=== PATIENT | male | born 1945 | race Caucasian/White ===

== ENCOUNTER 2016-11-08 11:23 | Inpatient (IN) | payer MEDICARE, BC ==
--- NOTE | 2016-11-08 12:29 | EDM.PDOC ---
ED HPI GENERAL MEDICAL PROBLEM - General Chief Complaint: Lower Extremity Injury/Pain Stated Complaint: swelling in lower extremities Time Seen by Provider: 11/08/16 11:51 Source of Information: Reports: Patient, Family History Limitations: Reports: No Limitations - History of Present Illness INITIAL COMMENTS - FREE TEXT/NARRATIVE: Patient here for evaluation of persistent lower extremity swelling in ankle area bilaterally that has been present for several days. No pain, but feels "tight". Still able to ambulate. Patient had rotator cuff repair on right side one week ago. Was on MS orally for several days. Now on PRN Hydrocodone/Tylenol. Only other complaints are that he has felt itchy since the surgery, and periodically feels hot/cold. No hives. No increased pain in right shoulder, no increased redness or drainage. ROS negative for HEENT changes. No cough/SOB/respiratory changes. No other pain complaints. No change in exercise tolerance. Has had some constipation but no other GI complaints. That improved with OTC stool softeners. No changes. No other limb complaints. Usually takes a morning dose of lasix. Called his provider, Chinmay Pierre, and advised to try lasix BID. Patient says he did not notice any change in the level of swelling. Patient does not weigh himself and cannot say if he has had any short term weight gain. Does not note swelling anywhere else. - Related Data Allergies Allergy/AdvReac Type Severity Reaction Status Date / Time No Known Allergies Allergy Verified 02/25/15 10:55 Home Meds: Home Meds Gabapentin [Neurontin] 900 mg PO TID 11/29/14 [History] Simvastatin [Zocor] 1 tab PO BEDTIME 11/29/14 [History] Terazosin [Hytrin] 1 cap PO DAILY 11/29/14 [History] Warfarin [Coumadin] 2.5 mg PO ONETIME@1800 11/29/14 [History] amLODIPine Besylate [Amlodipine Besylate] 0.5 tab PO DAILY 11/29/14 [History] Furosemide [Lasix] 60 mg PO BID@0800,1200 PRN 02/25/15 [History] Acetaminophen 1,000 mg PO Q8HR PRN 03/07/15 [History] Hydrocodone/Acetaminophen [Hydrocodon-Acetaminoph 7.5-325] 1 - 2 each PO PRN [History] Levothyroxine 25 mcg PO ACBREAKFAST 11/08/16 [History] Past Medical History HEENT History: Reports: None Other HEENT History: Glasses Cardiovascular History: Reports: Afib, High Cholesterol, Hypertension Respiratory History: Reports: COPD Other Respiratory History: HCC Gastrointestinal History: Reports: None Genitourinary History: Reports: Prostate Disorder Musculoskeletal History: Reports: Arthritis, Back Pain, Chronic, Fracture, Gout , Other (See Below) Other Musculoskeletal History: Compression fracture of L4 Neurological History: Reports: None Psychiatric History: Reports: None Endocrine/Metabolic History: Reports: None, Obesity/BMI 30+ Hematologic History: Reports: None Immunologic History: Reports: None Oncologic (Cancer) History: Reports: None Dermatologic History: Reports: None - Past Surgical History HEENT Surgical History: Reports: None, Other (See Below) GI Surgical History: Reports: Hernia Repair/Other Musculoskeletal Surgical History: Reports: Other (See Below) Social & Family History - Family History Cardiac: Reports: Heart Failure, Hypertension Endocrine/Metabolic: Reports: Diabetes, type II - Tobacco Use Smoking Status *Q: Former Smoker Years of Tobacco use: 30 Packs/Tins Daily: 1 Used Tobacco, but Quit: Yes Month Tobacco Last Used: November 2000 Second Hand Smoke Exposure: No - Alcohol Use Days Per Week of Alcohol Use: 3 Number of Drinks Per Day: 5 Total Drinks Per Week: 15 - Recreational Drug Use Recreational Drug Use: No Review of Systems - Review of Systems Review Of Systems: See Below Constitutional: Reports: Other (Feels hot/cold at times). Denies: Diaphoresis, Fever, Weakness Ears: Reports: No Symptoms Nose: Reports: No Symptoms Mouth/Throat: Reports: No Symptoms Respiratory: Reports: No Symptoms Cardiovascular: Reports: No Symptoms GI/Abdominal: Reports: Constipation. Denies: Abdominal Pain, Diarrhea, Nausea, Vomiting Genitourinary: Reports: No Symptoms Musculoskeletal: Reports: Other (swelling bilateral lower legs) Skin: Reports: Pruritis. Denies: Rash Neurological: Reports: No Symptoms Psychiatric: Reports: No Symptoms ED EXAM, GENERAL - Physical Exam Exam: See Below Exam Limited By: No Limitations General Appearance: Alert, No Apparent Distress, Obese Eye Exam: Bilateral Eye: EOMI, PERRL Ears: Normal External Exam Nose: Normal Inspection Throat/Mouth: Normal Inspection, Normal Voice, No Airway Compromise Head: Atraumatic, Normocephalic Neck: Normal Inspection, Supple, Non-Tender, Full Range of Motion Respiratory/Chest: No Respiratory Distress, Lungs Clear, Normal Breath Sounds, No Accessory Muscle Use, Chest Non-Tender Cardiovascular: Regular Rate, Rhythm, No Murmur, Other (Pitting edema bilaterally lower leg/ankle area. Equal bilaterally. Unable to palpate pulses in area secondary to the edema. ) GI/Abdominal: Normal Bowel Sounds, Soft, Non-Tender, Other (rounded protuberant abdomen.) (Male) Exam: Deferred Rectal (Males) Exam: Deferred Back Exam: No: CVA Tenderness (L), CVA Tenderness (R), Muscle Spasm, Paraspinal Tenderness, Vertebral Tenderness Extremities: Non-Tender, Pedal Edema. No: Jose Alfredo's Sign, Leg Pain, Increased Warmth, Pallor, Redness Neurological: Alert, Oriented, Normal Cognition, Other (Equal strength bilaterally upper/lower extremities) Psychiatric: Normal Affect, Normal Mood Skin Exam: Warm, Dry, Intact, Ecchymosis (in area of right rotator cuff surgery) , Other (Skin dryer in area of lower extremities. No excoriations, skin intact. ) Course - Vital Signs Last Recorded V/S: Last Vital Signs Temp 36.6 C 11/08/16 11:46 Pulse 62 11/08/16 11:46 Resp 18 11/08/16 11:46 BP 123/70 11/08/16 11:46 Pulse Ox 96 11/08/16 11:46 - Re-Assessments/Exams Free Text/Narrative Re-Assessment/Exam: 11/08/16 12:34 Patient noted to have significant edema and it was felt that he would benefit from IV lasix therapy. Edema likely related to the recent surgery/medications/activity changes. Will perform routine labs as well as UA. INR to be checked as patient is back on his Warfarin. Admitted observation for diuresis. Will also cover with Benadryl to see if itching is improved. The pruritis may be related to his pain medication or the recent other medications used in conjunction with his surgery. Departure - Departure Time of Disposition: 12:40 Disposition: Refer to Observation Clinical Impression: Bilateral lower extremity edema, S/P rotator cuff repair, Itching - Discharge Information - Problem List & Annotations (1) Bilateral lower extremity edema SNOMED Code(s): 633572957 Code(s): R60.0 - LOCALIZED EDEMA Status: Acute Priority: High Current Visit: Yes Onset Date: ~11/04/16 (2) S/P rotator cuff repair SNOMED Code(s): 539196388, 599511601 Code(s): Z98.890 - OTHER SPECIFIED POSTPROCEDURAL STATES Status: Acute Priority: Medium Current Visit: Yes Onset Date: 11/02/16 Annotation/ Comment:: Right rotator cuff repair (3) Itching SNOMED Code(s): 995517292 Code(s): L29.9 - PRURITUS, UNSPECIFIED Status: Acute Priority: Low Current Visit: Yes Onset Date: ~11/04/16 Annotation/Comment:: Has had general sensation of pruritis since surgery. (4) BPH (benign prostatic hyperplasia) SNOMED Code(s): 534254896, 039707749 Code(s): N40.0 - BENIGN PROSTATIC HYPERPLASIA WITHOUT LOWER URINRY TRACT SYMP Status: Chronic Current Visit: No (5) Hypothyroid SNOMED Code(s): 89153228 Code(s): E03.9 - HYPOTHYROIDISM, UNSPECIFIED Status: Chronic Current Visit: No (6) Dyslipidemia SNOMED Code(s): 484711741 Code(s): E78.5 - HYPERLIPIDEMIA, UNSPECIFIED Status: Chronic Current Visit: No (7) Chronic back pain SNOMED Code(s): 588458694 Code(s): M54.9 - DORSALGIA, UNSPECIFIED; G89.29 - OTHER CHRONIC PAIN Status : Chronic Current Visit: No (8) Atrial fibrillation with controlled ventricular response SNOMED Code(s): 26843950, 570787209 Code(s): I48.91 - UNSPECIFIED ATRIAL FIBRILLATION Status: Chronic Current Visit: No - Problem List Review Problem List Initiated/Reviewed/Updated: Yes - Assessment/Plan Admission H&P: Please use this note as an admission H&P Assessment:: Bilateral lower extremity edema s/p recent right rotator cuff repair. Mild pruritis over same timeframe. Plan: Patient OK for/stable for generalized supervision. IV lasix planned. Benadryl. Will try to change current medications for pain to see if itching improves.
[2016-11-08] MEDS ORDERED: Bisacodyl 10 MG Supp RECTAL PRN (12:53)
[2016-11-08] MEDS ORDERED: Magnesium Hydroxide 400 MG/5 ML Susp 30 ML Cup PO PRN (12:53)
[2016-11-08] MEDS ORDERED: Furosemide 40 MG/4 ML VIAL IVPUSH ONE (12:59)
[2016-11-08] MEDS: Sodium Chloride 0.9% 10 ML Syringe FLUSH PRN (13:34)
[2016-11-08] MEDS: Acetaminophen 325 MG Tab PO PRN (13:45)
[2016-11-08 13:55] LABS: CHLORIDE,CL 102 mmol/L (98-107); SODIUM,NA 140 mmol/L (136-145)
[2016-11-08] MEDS ORDERED: traMADol 50 MG Tab PO ONE (15:40)
[2016-11-08] MEDS ORDERED: Ketorolac 30 MG/ML SDV IVPUSH ONE (15:42)
[2016-11-08] MEDS ORDERED: diphenhydrAMINE 50 MG/ML SDV IVPUSH ONE (15:42)
[2016-11-08] MEDS ORDERED: Sodium Chloride 0.9% 1,000 ML IV ONE (15:42)
[2016-11-08] MEDS ORDERED: Warfarin 2.5 MG Tab PO ONE (18:00)
[2016-11-08] MEDS ORDERED: Warfarin 5 MG Tab PO ONE (18:00)
[2016-11-08] MEDS: Simvastatin 10 MG Tab PO SCH (19:36)
--- NOTE | 2016-11-08 20:59 | PCM.SN ---
- Free Text/Narrative Note: Patient noted to be Bradycardic once admitted and after receiving initial medications. Telemetry initiated. Patient without complaint. Resting comfortably. Uncertain at this time if related to medications. Will continue telemetry and monitor for changes.
--- NOTE | 2016-11-08 23:37 | PCM.SN ---
- Free Text/Narrative Note: Persistent bradycardia. Patient does not know what usual heart rate is or if he has had bradycardia in past. Continues to feel fine. No complaints. Is sitting in chair watching television. Vital signs stable. EKG obtained. Bradycardia and Afib noted. Rate 38. Call placed to Cardiology at [place]. Discussed patient with . He reviewed EKG. Recommended continued observation as long as patient remains stable and without complaint. May reflect developing sick sinus syndrome. We are to contact Cardiology if any worsening is noted.
[2016-11-09] MEDS ORDERED: Furosemide 40 MG/4 ML VIAL IVPUSH ONE ×2 (07:00→08:56)
[2016-11-09] MEDS ORDERED: Terazosin 5 MG Cap PO SCH (08:00)
[2016-11-09] MEDS ORDERED: amLODIPine 5 MG Tab PO SCH (08:00)
[2016-11-09] MEDS ORDERED: Lisinopril 10 MG Tab PO SCH (09:00)
[2016-11-09] MEDS: Levothyroxine 25 MCG Tab PO SCH (09:50)
[2016-11-09] MEDS: Acetaminophen 325 MG Tab PO PRN (09:51)
[2016-11-09 09:58] LABS: CHLORIDE,CL 105 mmol/L (98-107); SODIUM,NA 143 mmol/L (136-145)
[2016-11-09] MEDS ORDERED: Gabapentin 300 MG Cap PO SCH ×2 (10:15→15:00)
[2016-11-09] MEDS: Sodium Chloride 0.9% 10 ML Syringe FLUSH PRN (10:25)
[2016-11-09] MEDS: Potassium Chloride 20 MEQ Tab.ER PO SCH ×2 (11:54→18:13)
--- NOTE | 2016-11-09 14:58 | PCM.PN ---
- General Info Date of Service: 11/09/16 Admission Dx/Problem (Free Text): 1. Bradycardia 2. CHF Subjective Update: As below Functional Status: Reports: Pain Controlled (Postoperative right shoulder pain after recent arthroscopic rotator cuff repair), Tolerating Diet, Ambulating, Urinating, New Symptoms (Moderate bradycardia as below). Denies: Incentive Spirometry Pain Score: 5 - Review of Systems General: Reports: Other (Development of moderate bradycardia in the 30s during the night with improvement to the 50s earlier this morning). Denies: Fever, Weakness, Fatigue, Malaise, Chills, Night Sweats, Appetite (Appetite good) HEENT: Reports: Glasses. Denies: Dysphasia, Ear Pain, Eye Pain, Headaches, Sinus Congestion, Sore Throat, Rhinitis, Visual Changes Pulmonary: Reports: No Symptoms. Denies: Shortness of Breath, Pleuritic Chest Pain, Cough, Sputum, Hemoptysis, Wheezing Cardiovascular: Reports: Edema (Moderate dependent edema), Lightheadedness ( Borderline). Denies: Chest Pain, Palpitations, Dyspnea on Exertion, Orthopnea, PND Gastrointestinal: Reports: No Symptoms, Other (Excellent bowel movement earlier this morning). Denies: Abdominal Pain, Constipation, Decreased Appetite, Diarrhea, Difficulty Swallowing, Flatus, Hematochezia, Melena, Nausea, Vomiting Genitourinary: Reports: No Symptoms. Denies: Dysuria, Frequency, Burning, Pain , Urgency, Incontinence, Hematuria, Retention, Flank Pain Musculoskeletal: Reports: Shoulder Pain (Postoperative pain and right shoulder as above), Joint Pain (As above). Denies: Arm Pain, Hand Pain, Back Pain, Leg Pain, Joint Swelling Skin: Reports: Bruising (Postoperative left proximal arm and chest wall). Denies: Pallor, Diaphoresis Neurological: Reports: Dizziness. Denies: Confusion, Headache, Numbness, Paresthesia, Tingling, Trouble Speaking, Difficulty Walking, Weakness, Change in Speech Psychiatric: Reports: No Symptoms. Denies: Confusion, Depression, Anxiety, Agitation, Suicidal Ideation - Patient Data Vitals - Most Recent: Last Vital Signs Temp 36.7 C 11/09/16 08:00 Pulse 43 L 11/09/16 08:00 Resp 16 11/09/16 00:00 BP 146/87 H 11/09/16 08:00 Pulse Ox 97 11/09/16 08:00 Vital Signs - 24 hr 08/23/17 08/24/17 08/24/17 16:00 00:00 08:00 Temperature [ 36.6 C 36.6 C 36.7 C Oral] Pulse, 40 L 50 L 43 L Peripheral [ Pulse Oximetry] Respiratory 20 16 Rate Blood Pressure 132/70 143/79 H 146/87 H [Left Arm] O2 Sat by Pulse 97 96 97 Oximetry Weight - Most Recent: 140.069 kg I&O - Last 24 Hours: Intake & Output 11/08/16 11/09/16 11/09/16 22:59 06:59 14:59 Intake Total 670 785 Output Total 208 215 4050 Balance -130 -150 -665 Imaging Impressions - Last 24 Hours: 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 No ectopy or extrasystoles Lab Results Last 24 Hours: Laboratory Results - last 24 hr 11/08/16 11/08/16 11/09/16 Range/Units 13:20 14:21 09:25 WBC 10.7 H (4.0-10.2) K/uL RBC 4.83 (4.33-5.41) M/uL Hgb 15.3 (13.1-16.8) g/dL Hct 45.3 (39.0-49.0) % MCV 93.8 (84.0-98.0) fL MCH 31.7 (28.2-33.3) pg MCHC 33.8 (31.7-36.0) g/dL RDW 15.0 H (11.2-14.1) % Plt Count 252 (150-350) K/uL Neut % (Auto) 67.2 (45.0-80.0) % Lymph % (Auto) 15.9 (10.0-50.0) % [place] % (Auto) 12.0 (2.0-14.0) % Eos % (Auto) 4.5 (0.0-5.0) % Baso % (Auto) 0.4 (0.0-2.0) % Neut # (Auto) 7.16 H (1.40-7.00) K/uL Lymph # (Auto) 1.70 (0.50-3.50) K/uL [place] # (Auto) 1.28 H (0.00-1.00) K/uL Eos # (Auto) 0.48 (0.00-0.50) K/uL Baso # (Auto) 0.04 (0.00-0.20) K/uL PT (9.8-11.7) SEC INR APTT (23.5-30.0) SEC D-Dimer, Quantitative (0-400) ng/mL Sodium (136-145) mmol/L Potassium (3.5-5.1) mmol/L Chloride (98-107) mmol/L Carbon Dioxide (21.0-32.0) mmol/L BUN (7-18) mg/dL Creatinine (0.51-1.17) mg/dL Est Cr Clr Drug Dosing mL/min Estimated GFR (MDRD) mL/min Glucose (74-106) mg/dL Hemoglobin A1c (4.3-5.7) % Calcium (8.5-10.1) mg/dL Total Bilirubin (0.2-1.0) mg/dL AST (15-37) U/L ALT (12-78) U/L Alkaline Phosphatase (46-116) IU/L Creatine Kinase (26-308) U/L Creatine Kinase Index (0.0-2.5) % CK-MB (CK-2) (0.00-3.60) ng/mL Troponin I (0.000-0.056) ng/mL Bxl-W-Guchqmuhdwy Pept (0-125) pg/mL Total Protein (6.4-8.2) g/dL Albumin (3.4-5.0) g/dL TSH, Ultra Sensitive 1.855 (0.358-3.740) mIU/mL Specimen Type Urinblad Urine Color Dark yellow Urine Appearance Clear Urine pH 6.5 (5.0-9.0) Ur Specific [place] 1.015 (1.005-1.030) Urine Protein Negative (NEGATIVE) mg/dL Urine Glucose (UA) Negative (NEGATIVE) mg/dL Urine Ketones Negative (NEGATIVE) mg/dL Urine Occult Blood Negative (NEGATIVE) Urine Nitrite Negative (NEGATIVE) Urine Bilirubin Negative (NEGATIVE) Urine Urobilinogen 1.0 (0.2-1.0) E.U./dL Ur Leukocyte Esterase Negative (NEGATIVE) Urine RBC Not seen /HPF Urine WBC 0-5 /HPF Ur Epithelial Cells Not seen /LPF Urine Bacteria Not seen (NONE TO FEW) /HPF 11/09/16 11/09/16 11/09/16 Range/Units 09:25 09:25 09:25 WBC (4.0-10.2) K/uL RBC (4.33-5.41) M/uL Hgb (13.1-16.8) g/dL Hct (39.0-49.0) % MCV (84.0-98.0) fL MCH (28.2-33.3) pg MCHC (31.7-36.0) g/dL RDW (11.2-14.1) % Plt Count (150-350) K/uL Neut % (Auto) (45.0-80.0) % Lymph % (Auto) (10.0-50.0) % [place] % (Auto) (2.0-14.0) % Eos % (Auto) (0.0-5.0) % Baso % (Auto) (0.0-2.0) % Neut # (Auto) (1.40-7.00) K/uL Lymph # (Auto) (0.50-3.50) K/uL [place] # (Auto) (0.00-1.00) K/uL Eos # (Auto) (0.00-0.50) K/uL Baso # (Auto) (0.00-0.20) K/uL PT (9.8-11.7) SEC INR APTT (23.5-30.0) SEC D-Dimer, Quantitative 709 H (0-400) ng/mL Sodium 143 (136-145) mmol/L Potassium 3.5 (3.5-5.1) mmol/L Chloride 105 (98-107) mmol/L Carbon Dioxide 29.1 (21.0-32.0) mmol/L BUN 19 H (7-18) mg/dL Creatinine 0.87 (0.51-1.17) mg/dL Est Cr Clr Drug Dosing 90.13 mL/min Estimated GFR (MDRD) > 60 mL/min Glucose 131 H (74-106) mg/dL Hemoglobin A1c 6.2 H (4.3-5.7) % Calcium 9.1 (8.5-10.1) mg/dL Total Bilirubin 1.6 H (0.2-1.0) mg/dL AST 29 (15-37) U/L ALT 46 (12-78) U/L Alkaline Phosphatase 99 (46-116) IU/L Creatine Kinase 28 (26-308) U/L Creatine Kinase Index 2.9 H (0.0-2.5) % CK-MB (CK-2) 0.80 (0.00-3.60) ng/mL Troponin I 0.000 (0.000-0.056) ng/mL Aus-B-Hmvjbptueqv Pept 260 H (0-125) pg/mL Total Protein 7.3 (6.4-8.2) g/dL Albumin 3.5 (3.4-5.0) g/dL TSH, Ultra Sensitive (0.358-3.740) mIU/mL Specimen Type Urine Color Urine Appearance Urine pH (5.0-9.0) Ur Specific [place] (1.005-1.030) Urine Protein (NEGATIVE) mg/dL Urine Glucose (UA) (NEGATIVE) mg/dL Urine Ketones (NEGATIVE) mg/dL Urine Occult Blood (NEGATIVE) Urine Nitrite (NEGATIVE) Urine Bilirubin (NEGATIVE) Urine Urobilinogen (0.2-1.0) E.U./dL Ur Leukocyte Esterase (NEGATIVE) Urine RBC /HPF Urine WBC /HPF Ur Epithelial Cells /LPF Urine Bacteria (NONE TO FEW) /HPF 11/09/16 Range/Units 09:25 WBC (4.0-10.2) K/uL RBC (4.33-5.41) M/uL Hgb (13.1-16.8) g/dL Hct (39.0-49.0) % MCV (84.0-98.0) fL MCH (28.2-33.3) pg MCHC (31.7-36.0) g/dL RDW (11.2-14.1) % Plt Count (150-350) K/uL Neut % (Auto) (45.0-80.0) % Lymph % (Auto) (10.0-50.0) % [place] % (Auto) (2.0-14.0) % Eos % (Auto) (0.0-5.0) % Baso % (Auto) (0.0-2.0) % Neut # (Auto) (1.40-7.00) K/uL Lymph # (Auto) (0.50-3.50) K/uL [place] # (Auto) (0.00-1.00) K/uL Eos # (Auto) (0.00-0.50) K/uL Baso # (Auto) (0.00-0.20) K/uL PT 24.8 H (9.8-11.7) SEC INR 2.2 APTT 35.4 H (23.5-30.0) SEC D-Dimer, Quantitative (0-400) ng/mL Sodium (136-145) mmol/L Potassium (3.5-5.1) mmol/L Chloride (98-107) mmol/L Carbon Dioxide (21.0-32.0) mmol/L BUN (7-18) mg/dL Creatinine (0.51-1.17) mg/dL Est Cr Clr Drug Dosing mL/min Estimated GFR (MDRD) mL/min Glucose (74-106) mg/dL Hemoglobin A1c (4.3-5.7) % Calcium (8.5-10.1) mg/dL Total Bilirubin (0.2-1.0) mg/dL AST (15-37) U/L ALT (12-78) U/L Alkaline Phosphatase (46-116) IU/L Creatine Kinase (26-308) U/L Creatine Kinase Index (0.0-2.5) % CK-MB (CK-2) (0.00-3.60) ng/mL Troponin I (0.000-0.056) ng/mL Ngg-E-Drqkzyblluw Pept (0-125) pg/mL Total Protein (6.4-8.2) g/dL Albumin (3.4-5.0) g/dL TSH, Ultra Sensitive (0.358-3.740) mIU/mL Specimen Type Urine Color Urine Appearance Urine pH (5.0-9.0) Ur Specific [place] (1.005-1.030) Urine Protein (NEGATIVE) mg/dL Urine Glucose (UA) (NEGATIVE) mg/dL Urine Ketones (NEGATIVE) mg/dL Urine Occult Blood (NEGATIVE) Urine Nitrite (NEGATIVE) Urine Bilirubin (NEGATIVE) Urine Urobilinogen (0.2-1.0) E.U./dL Ur Leukocyte Esterase (NEGATIVE) Urine RBC /HPF Urine WBC /HPF Ur Epithelial Cells /LPF Urine Bacteria (NONE TO FEW) /HPF Justin Results Last 24 Hours: None Med Orders - Current: Current Medications Acetaminophen (Tylenol) 650 mg PO Q4H PRN PRN Reason: analgesia/fever Last Admin: 11/09/16 09:51 Dose: 650 mg Bisacodyl (Dulcolax) 10 mg RECTAL DAILY PRN PRN Reason: Constipation Furosemide (Lasix) 40 mg IVPUSH Q8H [facility] Gabapentin (Neurontin) 900 mg PO TID@0800,1500,2100 [facility] Levothyroxine Sodium (Levothyroxine) 25 mcg PO ACBREAKFAST [facility] Last Admin: 11/09/16 09:50 Dose: 25 mcg Lisinopril (Prinivil) 10 mg PO DAILY [facility] Last Admin: 11/09/16 09:51 Dose: 10 mg Magnesium Hydroxide (Milk Of Magnesia) 30 ml PO BID PRN PRN Reason: Constipation Potassium Chloride (Klor-Con M20) 20 meq PO TID [facility] Last Admin: 11/09/16 11:54 Dose: 20 meq Simvastatin (Zocor) 10 mg PO BEDTIME [facility] Last Admin: 11/08/16 19:36 Dose: 10 mg Sodium Chloride (Saline Flush) 10 ml FLUSH ASDIRECTED PRN PRN Reason: Keep Vein Open Last Admin: 11/09/16 10:25 Dose: 10 ml Terazosin HCl (Hytrin) 10 mg PO DAILY [facility] Last Admin: 11/09/16 09:50 Dose: 10 mg Discontinued Medications Amlodipine Besylate (Norvasc) 5 mg PO DAILY [facility] Last Admin: 11/09/16 11:10 Dose: Not Given Diphenhydramine HCl (Benadryl) 50 mg IVPUSH ONETIME ONE Stop: 11/08/16 15:43 Last Admin: 11/08/16 16:02 Dose: 50 mg Furosemide (Lasix) 40 mg IVPUSH NOW ONE Stop: 11/08/16 13:00 Last Admin: 11/08/16 13:34 Dose: 40 mg Furosemide (Lasix) 40 mg IVPUSH NOW ONE Stop: 11/09/16 07:01 Last Admin: 11/09/16 09:53 Dose: Not Given Furosemide (Lasix) 20 mg IVPUSH ONETIME ONE Stop: 11/09/16 16:01 Furosemide (Lasix) 60 mg IVPUSH NOW ONE Stop: 11/09/16 08:57 Last Admin: 11/09/16 09:52 Dose: 60 mg Gabapentin (Neurontin) 900 mg PO TID [facility] Last Admin: 11/09/16 10:09 Dose: 900 mg Sodium Chloride (Normal Saline) 1,000 mls @ 75 mls/hr IV ASDIRECTED ONE Stop: 11/09/16 05:01 Last Admin: 11/08/16 16:05 Dose: 75 mls/hr Ketorolac Tromethamine (Toradol) 30 mg IVPUSH ONETIME ONE Stop: 11/08/16 15:43 Last Admin: 11/08/16 16:04 Dose: 30 mg Tramadol HCl (Ultram) 50 mg PO ONETIME ONE Stop: 11/08/16 15:41 Last Admin: 11/08/16 16:01 Dose: 50 mg Warfarin Sodium (Coumadin) 2.5 mg PO ONETIME@1800 ONE Stop: 11/08/16 18:01 Warfarin Sodium (Coumadin) 5 mg PO ONETIME ONE Stop: 11/08/16 18:01 Last Admin: 11/08/16 17:33 Dose: 5 mg - Exam Quality Assessment: DVT Prophylaxis (On Coumadin). No: Supplemental Oxygen, Central Line/PICC, Urine Catheter, Skin Breakdown, Restraints General: Alert, Oriented, Cooperative, No Acute Distress HEENT: Pupils Equal, Pupils Reactive, EOMI, Mucous Membr. Moist/[place] Neck: Supple, Trachea Midline, No JVD, No Thyromegaly. No: Lymphadenopathy Lungs: Normal Respiratory Effort, Rales (Mild bilateral basilar rales). No: Rhonchi, Rub, Stridor, Wheezing Cardiovascular: No Murmurs, Irregular Rhythm, Bradycardia (Moderate to severe), Other (Atrial fibrillation with quiet heart sounds). No: Gallops, Rubs GI/Abdominal Exam: Normal Bowel Sounds, Soft, Non-Tender, No Organomegaly, No Distention, No Abnormal Bruit, No Mass, Pelvis Stable, Other (Obese). No: Guarding (Male) Exam: Deferred Back Exam: Normal Inspection, Full Range of Motion. No: CVA Tenderness (L), CVA Tenderness (R), Muscle Spasm Extremities: Normal Capillary Refill, Pedal Edema (+1 to +2 bilateral pedal/ pretibial edema with moderate bilateral venous stasis dermatitis of the lower extremities), Arm Pain (Stable postoperative right shoulder and arm pain as above with sutures in place from laparoscopic surgery and the deltoid region, no drainage or sign of infection, moderate ecchymosis over the proximal right arm, shoulder, and axillary/chest region, arm sling/brace in forearm region). No: Jose Alfredo's Sign Peripheral Pulses: 1+: Dorsalis Pedis (L) (Note dependent edema), Dorsalis Pedis (R), 2+: Radial (L), Radial (R) Skin: Warm, Dry, Ecchymosis (As above) Wound/Incisions: Healing Well Neurological: No New Focal Deficit, Other (Borderline orthostasis) Psy/Mental Status: Alert, Normal Affect, Normal Mood. No: Depressed, Agitated, Hallucinations, Withdrawal Symptoms EKG INTERPRETATION EKG Date: 11/09/16 Time: 07:25 Rhythm: A-Fib (With moderate to severe bradycardia and heart rate of 46 improved from 38 yesterday) [place]: Normal (Neutral) P-Wave: Variable QRS: Wide (QRS interval of 0.10 seconds representing repolarization changes with possible T-wave inversion in lead V1) ST-T: Normal QT: Normal VT/PQ Interval: Not applicable Comparison: Change From Previous EKG (Improves bradycardia as above since ) EKG Interpretation Comments: 1. Moderate to severe bradycardia 2. Atrial fibrillation 3. Repolarization changes - Problem List & Annotations (1) CHF (congestive heart failure) SNOMED Code(s): 57504548 Code(s): I50.9 - HEART FAILURE, UNSPECIFIED Status: Acute Current Visit: Yes Onset Date: ~11/08/16 Qualifiers: Congestive heart failure type: unspecified congestive heart failure type Congestive heart failure chronicity: acute Qualified Code(s): I50.9 - Heart failure, unspecified Annotation/Comment:: BNP significantly elevated with progressive postoperative dependent edema. Additional aggressive IV Lasix therapy initiated today with potassium supplementation. Lisinopril increased from daily to twice a day regimen. Consider further cardiac workup, including echocardiogram, etc. on an outpatient basis. He denies any chest pain or anginal type symptoms. Repeat EKG , blood work, and chest x-ray in the a.m. Moderate to severe bradycardia is a cofactor and patient's current CHF (2) Bradycardia SNOMED Code(s): 94325868 Code(s): R00.1 - BRADYCARDIA, UNSPECIFIED Status: Acute Priority: High Current Visit: Yes Onset Date: 11/09/16 Annotation/Comment:: Moderate to severe bradycardia with cardiology consultation by Dr. Cai yesterday as per simple provider note. Patient's Norvasc and Hytrin were discontinued today secondary to the possible bradycardic effects. Continue to observe his blood pressure closely, which is stable at this time. Possible hospital transfer to [facility] for pacemaker placement with no direct evidence of third-degree AV block at this time, although sick sinus syndrome remains a possibility. Continue to observe his blood pressure closely with IV Lasix and increase lisinopril therapy as above (3) Atrial fibrillation SNOMED Code(s): 11700723 Code(s): I48.91 - UNSPECIFIED ATRIAL FIBRILLATION Status: Chronic Priority: High Current Visit: Yes Qualifiers: Atrial fibrillation type: chronic Qualified Code(s): I48.2 - Chronic atrial fibrillation Annotation/Comment:: Chronic atrial fibrillation with significant bradycardia as above. INR is therapeutic today (4) Elevated d-dimer SNOMED Code(s): 007668097 Code(s): R79.1 - ABNORMAL COAGULATION PROFILE Status: Acute Priority: Medium Current Visit: No Annotation/Comment:: Venous Doppler studies conducted today with preliminary verbal report from park maintenance technicianEmerita, earlier this morning. No clinical evidence of DVT or PE with therapeutic INR at this time. Daily Coumadin orders for now secondary to significant postoperative ecchymosis (5) Osteoarthritis SNOMED Code(s): 929558407 Code(s): M19.90 - UNSPECIFIED OSTEOARTHRITIS, UNSPECIFIED SITE Status: Chronic Priority: Medium Current Visit: Yes Qualifiers: Osteoarthritis location: multiple joints Osteoarthritis type: primary Qualified Code(s): M15.0 - Primary generalized (osteo)arthritis Annotation/Comment:: Note status post recent arthroscopic right rotator cuff repair with normal postoperative pain, which is currently under good control by his history. His arthritis is otherwise stable by history (6) Hyperlipidemia SNOMED Code(s): 70333975 Code(s): E78.5 - HYPERLIPIDEMIA, UNSPECIFIED Status: Chronic Priority: Medium Current Visit: Yes Qualifiers: Hyperlipidemia type: unspecified Qualified Code(s): E78.5 - Hyperlipidemia , unspecified Annotation/Comment:: Currently under therapy (7) Peripheral neuropathy SNOMED Code(s): 056294107 Code(s): G62.9 - POLYNEUROPATHY, UNSPECIFIED Status: Chronic Priority: Medium Current Visit: Yes Qualifiers: Peripheral neuropathy type: polyneuropathy, other Qualified Code(s): G62.89 - Other specified polyneuropathies Annotation/Comment:: Refractory peripheral neuropathy with patient requesting reinitiation of his current high-dose Neurontin therapy today. No problems with this medication concerning his bradycardia, etc. (8) Hypothyroidism SNOMED Code(s): 64459063 Code(s): E03.9 - HYPOTHYROIDISM, UNSPECIFIED Status: Chronic Priority: Medium Current Visit: Yes Qualifiers: Hypothyroidism type: acquired Qualified Code(s): E03.9 - Hypothyroidism, unspecified Annotation/Comment:: Currently under therapy with normal TSH on admission (9) BPH (benign prostatic hyperplasia) SNOMED Code(s): 153544295, 571263880 Code(s): N40.0 - BENIGN PROSTATIC HYPERPLASIA WITHOUT LOWER URINRY TRACT SYMP Status: Chronic Priority: Medium Current Visit: No Qualifiers: Lower urinary tract symptom presence: symptoms absent Qualified Code(s): N40.0 - Benign prostatic hyperplasia without lower urinary tract symptoms Annotation/Comment:: Hytrin discontinued with caution as above. Continue to observe closely - Problem List Review Problem List Initiated/Reviewed/Updated: Yes - My Orders Last 24 Hours: My Active Orders 11/09/16 08:54 Venous Doppler Lwr Ext Bi [US] Urgent 11/09/16 08:58 CHF Questionnaire [COMM] Routine 11/09/16 09:00 Vaccines to be Administered [RC] PER UNIT ROUTINE Lisinopril [Prinivil] 10 mg PO DAILY [facility] Immunization Reflex [OM.PC] Click To Edit 11/09/16 12:00 Potassium Chloride [Klor-Con M20] 20 meq PO TID 11/09/16 15:00 Gabapentin [Neurontin] 900 mg PO TID@0800,1500,2100 11/09/16 17:00 Furosemide [Lasix] 40 mg IVPUSH Q8H 11/09/16 Breakfast Fluid Restriction [DIET] - Assessment Assessment:: As above - Plan Plan:: As above. Extensive precautions were given to the patient and his , who are in agreement with the treatment plan. Patient to be transferred from observation to inpatient/acute care for medication adjustment and further observation of his bradycardia with anticipated an additional 2-3 days of hospitalization with possible early transfer to [facility] depending on his clinical course
[2016-11-09] MEDS ORDERED: Furosemide 20 MG/2 ML VIAL IVPUSH ONE (16:00)
[2016-11-09] MEDS ORDERED: Warfarin 2.5 MG Tab PO ONE (18:00)
[2016-11-09] MEDS: Furosemide 40 MG/4 ML VIAL IVPUSH SCH (18:12)
[2016-11-09] MEDS: Lisinopril 10 MG Tab PO SCH (18:12)
[2016-11-09] MEDS: Gabapentin 400 MG Cap PO SCH (18:14)
[2016-11-09] MEDS: Simvastatin 10 MG Tab PO SCH (19:28)
[2016-11-10] MEDS: Acetaminophen 325 MG Tab PO PRN (00:03)
[2016-11-10] MEDS: Furosemide 40 MG/4 ML VIAL IVPUSH SCH ×2 (00:04→09:37)
[2016-11-10 07:39] LABS: CHLORIDE,CL 103 mmol/L (98-107); SODIUM,NA 141 mmol/L (136-145)
[2016-11-10] MEDS: Gabapentin 400 MG Cap PO SCH (07:41)
[2016-11-10] MEDS: Potassium Chloride 20 MEQ Tab.ER PO SCH (07:41)
[2016-11-10] MEDS: Levothyroxine 25 MCG Tab PO SCH (07:41)
[2016-11-10 08:40] VITALS: BP 128/56
--- NOTE | 2016-11-10 09:07 | PCM.DCSUM1 ---
Discharge Summary - Hospital Course HPI Initial Comments: See admission H&P/emergency room now Brief History: See admission H&P/emergency room note - Discharge Data Discharge Date: 11/10/16 Discharge Disposition: DC/Tfer to Acute Hospital 02 Condition: Good - Discharge Diagnosis/Problem(s) (1) Bradycardia SNOMED Code(s): 30098022 ICD Code: R00.1 - BRADYCARDIA, UNSPECIFIED Status: Acute Priority: High Current Visit: Yes Onset Date: 11/09/16 Problem Details: Moderate to severe bradycardia, which persists despite holding all medications that affect his heart rate, including Norvasc and Hytrin yesterday. Patient is filling additional multiple PVCs versus PACs with aberrant conduction, including short 3 beat run earlier this morning at time of EKG. Note previous cardiology consultation with Dr. Gordillo at [facility] in [place] by Dr. Cai on as per simple provider note with observation recommended. Telephone consultation at 08:35 AM this morning with Dr. Persaud, hospitalist at [facility] in [place], who does accept the patient for direct admission and further cardiology consultation and probable pacemaker placement. No further treatment recommendations given. He is aware of patient's current Coumadin therapy and therapeutic INR 2.5 today. Last Coumadin dose yesterday at 18:00 hours with Coumadin reversal likely on arrival by means of vitamin K, etc.. Note that the patient's daughter also had a pacemaker placed at age 36. Patient's family, including his daughter and , were updated this morning prior to transfer. Ambulance transfer with paint stock clerk accompaniment Patient's Norvasc and Hytrin were discontinued today secondary to the possible bradycardic effects. Continue to observe his blood pressure closely, which is stable at this time. Possible hospital transfer to [place] for pacemaker placement with no direct evidence of third-degree AV block at this time, although sick sinus syndrome remains a possibility. Continue to observe his blood pressure closely with IV Lasix and increase lisinopril therapy as above (2) CHF (congestive heart failure) SNOMED Code(s): 49406828 ICD Code: I50.9 - HEART FAILURE, UNSPECIFIED Status: Acute Current Visit : Yes Onset Date: ~11/08/16 Problem Details: BNP somewhat improved this morning with negative serial cardiac enzymes with exception of artifactually elevated CK index. Note persistent dependent edema with current aggressive IV Lasix and lisinopril therapy. Patient's bradycardia is contributing factor to his CHF with no chest pain or anginal type symptoms. Further cardiac consultation, etc. as above including possible additional echocardiogram, heart catheterization, etc. Qualifiers: Congestive heart failure type: unspecified congestive heart failure type Congestive heart failure chronicity: acute Qualified Code(s): I50.9 - Heart failure, unspecified (3) Atrial fibrillation SNOMED Code(s): 81270825 ICD Code: I48.91 - UNSPECIFIED ATRIAL FIBRILLATION Status: Chronic Priority: High Current Visit: Yes Problem Details: Chronic atrial fibrillation with significant bradycardia as above. INR is therapeutic today. Qualifiers: Atrial fibrillation type: chronic Qualified Code(s): I48.2 - Chronic atrial fibrillation (4) Elevated d-dimer SNOMED Code(s): 449357362 ICD Code: R79.1 - ABNORMAL COAGULATION PROFILE Status: Acute Priority: Medium Current Visit: No Problem Details: Venous Doppler studies conducted yesterday with preliminary verbal report from [employer]. No clinical evidence of DVT or PE with therapeutic INR at this time. Note significant postoperative ecchymosis as above, although this has improved since yesterday. (5) Osteoarthritis SNOMED Code(s): 153058818 ICD Code: M19.90 - UNSPECIFIED OSTEOARTHRITIS, UNSPECIFIED SITE Status: Chronic Priority: Medium Current Visit: Yes Problem Details: Note status post recent arthroscopic right rotator cuff repair with normal postoperative pain, which is currently under good control by his history. His arthritis is otherwise stable by history Qualifiers: Osteoarthritis location: multiple joints Osteoarthritis type: primary Qualified Code(s): M15.0 - Primary generalized (osteo)arthritis (6) Hyperlipidemia SNOMED Code(s): 99489463 ICD Code: E78.5 - HYPERLIPIDEMIA, UNSPECIFIED Status: Chronic Priority: Medium Current Visit: Yes Problem Details: Currently under therapy Qualifiers: Hyperlipidemia type: unspecified Qualified Code(s): E78.5 - Hyperlipidemia , unspecified (7) Peripheral neuropathy SNOMED Code(s): 902670170 ICD Code: G62.9 - POLYNEUROPATHY, UNSPECIFIED Status: Chronic Priority: Medium Current Visit: Yes Problem Details: Refractory peripheral neuropathy with patient requesting reinitiation of his current high-dose Neurontin therapy today. No problems with this medication concerning his bradycardia, etc., however some sedation yesterday at the high-dose regimen with reduction of his Neurontin to 400 mg by mouth 3 times a day yesterday afternoon Qualifiers: Peripheral neuropathy type: polyneuropathy, other Qualified Code(s): G62.89 - Other specified polyneuropathies (8) Hypothyroidism SNOMED Code(s): 88397759 ICD Code: E03.9 - HYPOTHYROIDISM, UNSPECIFIED Status: Chronic Priority: Medium Current Visit: Yes Problem Details: Currently under therapy with normal TSH on admission Qualifiers: Hypothyroidism type: acquired Qualified Code(s): E03.9 - Hypothyroidism, unspecified (9) BPH (benign prostatic hyperplasia) SNOMED Code(s): 666119999, 625903973 ICD Code: N40.0 - BENIGN PROSTATIC HYPERPLASIA WITHOUT LOWER URINRY TRACT SYMP Status: Chronic Priority: Medium Current Visit: No Problem Details : Hytrin discontinued with caution as above. 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 Cai, [facility] physician, for severe bradycardia with cardiology consultation on admission. Observation was recommended. I did assume the patient's care yesterday morning with Norvasc and Hytrin therapy discontinued yesterday with no dose received yesterday. Despite holding these medications the patient's bradycardia did progress, including a heart rate of only 25 with a long pause this while the patient was sleeping. This morning the patient is exhibiting assistant surveyor bradycardia with average heart rate in the 40s and frequent PVCs versus PACs with aberrant conduction, however the patient denies any chest pain or anginal type symptoms. Occasional episodes of mild low-grade fever, however no true significant cough, wheezing, or other bronchitic type symptoms. Secondary to refractory bradycardia as above patient was transferred to [facility] in [place] via ambulance with paint stock clerk accompaniment. In addition, note aggressive treatment of his CHF with high-dose IV Lasix and lisinopril as above. No recent history of abdominal pain, heartburn, nausea, diarrhea, melena , gross hematochezia, or any food intolerance, including fatty foods, etc. with normal bowel movement at midnight by his history. Patient did tolerate his fluid restricted heart healthy diet well and was made nothing by mouth after breakfast secondary to possible upcoming pacemaker placement. - Patient Instructions Diet: NPO Activity: Bedrest, May Use Bathroom Driving: Do Not Drive Showering/Bathing: May Shower (With assist) Wound/Incision Care: Keep Operative Site/Wound Site Clean and Dry Notify Provider of: Fever, Increased Pain, Nausea and/or Vomiting Other/Special Instructions: Ambulance transfer with paint stock clerk accompaniment - Discharge Plan Home Medications: Home Meds Gabapentin [Neurontin] 900 mg PO TID 11/29/14 [History] Simvastatin [Zocor] 1 tab PO BEDTIME 11/29/14 [History] Terazosin [Hytrin] 1 cap PO DAILY 11/29/14 [History] Warfarin [Coumadin] 2.5 mg PO QAM 11/29/14 [History] amLODIPine Besylate [Amlodipine Besylate] 0.5 tab PO DAILY 11/29/14 [History] Furosemide [Lasix] 60 mg PO BID@0800,1200 PRN 02/25/15 [History] Acetaminophen 1,000 mg PO Q8HR PRN 03/07/15 [History] Hydrocodone/Acetaminophen [Hydrocodon-Acetaminoph 7.5-325] 1 each PO Q4HR PRN [History] Levothyroxine 25 mcg PO ACBREAKFAST 11/08/16 [History] Forms: ED Department Discharge, Interfacility Transfer EMTALA Referrals: Chinmay Pierre PA [Primary Care Provider] - - Discharge Summary/Plan Comment DC Time >30 min.: Yes (Coordination of care) Discharge Summary/Plan Comment: As above. Extensive precautions were given to the patient, his , and his daughter who are in agreement with the treatment plan. - General Info Date of Service: 11/10/16 Admission Dx/Problem (Free Text: 1. Bradycardia 2. CHF Subjective Update: As below Functional Status: Reports: Pain Controlled, Tolerating Diet, Ambulating, Urinating. Denies: New Symptoms, Incentive Spirometry Numeric/FACES Score: 5 - Review of Systems General: Reports: Fever (Temperature of 37.2 at midnight with patient afebrile this morning). Denies: Weakness, Fatigue, Malaise, Chills, Night Sweats, Appetite (Appetite good) HEENT: Reports: Glasses. Denies: Ear Pain, Eye Pain, Headaches, Post Nasal Drip , Sinus Congestion, Sore Throat, Rhinitis, Visual Changes Pulmonary: Reports: No Symptoms. Denies: Shortness of Breath, Pleuritic Chest Pain, Cough, Sputum, Wheezing Cardiovascular: Reports: Edema (Refractory dependent edema). Denies: Chest Pain , Palpitations, Dyspnea on Exertion, Orthopnea, Lightheadedness (A she denies despite severe bradycardia with major bradycardia while sleeping) Gastrointestinal: Reports: No Symptoms, Other (Normal bowel movement at midnight ). Denies: Abdominal Pain, Constipation, Decreased Appetite, Diarrhea, Difficulty Swallowing, Flatus, Hematochezia, Melena, Nausea, Vomiting Genitourinary: Reports: No Symptoms. Denies: Dysuria, Frequency, Burning, Pain , Urgency, Incontinence, Hematuria, Retention, Flank Pain, Other Musculoskeletal: Reports: Shoulder Pain (Stable 5/10 postoperative right shoulder pain which the patient feels is appropriate), Joint Pain (Right shoulder). Denies: Neck Pain, Arm Pain, Hand Pain, Back Pain, Leg Pain Skin: Reports: Bruising (Postoperative which is somewhat improved ). Denies: Cyanosis, Jaundice, Diaphoresis Neurological: Reports: Numbness (Stable chronic), Paresthesia (Stable chronic), Tingling (Stable chronic). Denies: Confusion, Dizziness, Headache, Seizure, Syncope, Tremors, Difficulty Walking, Weakness, Change in Speech Psychiatric: Reports: No Symptoms. Denies: Confusion, Depression, Anxiety, Agitation, Cravings, Hallucinations, Suicidal Ideation - Patient Data Vitals - Most Recent: Last Vital Signs Temp 36.5 C 11/10/16 08:00 Pulse 48 L 11/10/16 08:00 Resp 16 11/10/16 08:00 BP 128/56 L 11/10/16 08:00 Pulse Ox 96 11/10/16 08:00 Vital Signs (72 hours) 11/08/16 11/08/16 11/08/16 11:46 12:27 12:54 Temperature [ Oral] Temperature [ 36.6 C 36.6 C Temporal] Pulse, 62 57 L Peripheral [ Pulse Oximetry] Respiratory 18 18 Rate Blood Pressure Blood Pressure 123/70 133/73 [Left Arm] O2 Sat by Pulse 96 95 95 Oximetry 11/08/16 11/09/16 11/09/16 16:00 00:00 08:00 Temperature [ 36.6 C 36.6 C 36.7 C Oral] Temperature [ Temporal] Pulse, 40 L 50 L 43 L Peripheral [ Pulse Oximetry] Respiratory 20 16 Rate Blood Pressure Blood Pressure 132/70 143/79 H 146/87 H [Left Arm] O2 Sat by Pulse 97 96 97 Oximetry 11/09/16 11/09/16 11/09/16 16:00 18:12 20:00 Temperature [ 36.9 C 37.2 C Oral] Temperature [ Temporal] Pulse, 43 L 45 L Peripheral [ Pulse Oximetry] Respiratory 18 20 Rate Blood Pressure 118/68 Blood Pressure 118/68 128/66 [Left Arm] O2 Sat by Pulse 97 96 Oximetry 11/10/16 11/10/16 11/10/16 00:00 04:00 08:00 Temperature [ 36.7 C 36.5 C Oral] Temperature [ 36.7 C Temporal] Pulse, 56 L 88 48 L Peripheral [ Pulse Oximetry] Respiratory 16 20 16 Rate Blood Pressure Blood Pressure 122/58 L 108/54 L 128/56 L [Left Arm] O2 Sat by Pulse 96 94 L 96 Oximetry 11/10/16 09:08 Temperature [ Oral] Temperature [ Temporal] Pulse, Peripheral [ Pulse Oximetry] Respiratory Rate Blood Pressure 128/56 L Blood Pressure [Left Arm] O2 Sat by Pulse Oximetry Weight - Most Recent: 137.801 kg I&O - Last 24 hours: Intake & Output 11/09/16 11/10/16 11/10/16 22:59 06:59 14:59 Intake Total 520 350 Output Total 250 1100 100 Balance 270 -750 -100 Imaging Impressions - Last 24 hrs: nurse receptionist shows atrial fibrillation with severe bradycardia including lowest heart rate of 25 status evening with a long pause. Average heart rate in the 40s to low 50s with frequent PVCs versus PACs with aberrant conduction and short 3 beat run this morning. Occasional improvement of heart rate to the high 50s with activity. Chest x-ray, PA and lateral, shows moderate COPD with possible mild bilateral lower lobe pulmonary infiltrates versus secondary CHF changes and moderate centralized CHF with additional probable pulmonary hypertension with mild aortic valve calcification. Left atrial enlargement with moderate cardiomegaly. Mild to moderate osteophytic and osteoporotic changes in the thoracic spine Preliminary verbal report from [facility] sanitarian technician, concerning results of venous Doppler studies of the lower extremities on 11/09/16 with no evidence of DVT Lab Results - Last 24 hrs: Laboratory Results - last 24 hr 11/10/16 11/10/16 11/10/16 Range/Units 06:25 06:25 06:25 WBC 10.9 H (4.0-10.2) K/uL RBC 4.84 (4.33-5.41) M/uL Hgb 15.0 (13.1-16.8) g/dL Hct 45.4 (39.0-49.0) % MCV 93.8 (84.0-98.0) fL MCH 31.0 (28.2-33.3) pg MCHC 33.0 (31.7-36.0) g/dL RDW 15.2 H (11.2-14.1) % Plt Count 290 (150-350) K/uL Neut % (Auto) 65.2 (45.0-80.0) % Lymph % (Auto) 18.5 (10.0-50.0) % [place] % (Auto) 11.9 (2.0-14.0) % Eos % (Auto) 4.0 (0.0-5.0) % Baso % (Auto) 0.4 (0.0-2.0) % Neut # (Auto) 7.13 H (1.40-7.00) K/uL Lymph # (Auto) 2.02 (0.50-3.50) K/uL [place] # (Auto) 1.30 H (0.00-1.00) K/uL Eos # (Auto) 0.44 (0.00-0.50) K/uL Baso # (Auto) 0.04 (0.00-0.20) K/uL PT 28.2 H (9.8-11.7) SEC INR 2.5 APTT 35.3 H (23.5-30.0) SEC D-Dimer, Quantitative 873 H (0-400) ng/mL Sodium (136-145) mmol/L Potassium (3.5-5.1) mmol/L Chloride (98-107) mmol/L Carbon Dioxide (21.0-32.0) mmol/L BUN (7-18) mg/dL Creatinine (0.51-1.17) mg/dL Est Cr Clr Drug Dosing mL/min Estimated GFR (MDRD) mL/min Glucose (74-106) mg/dL Calcium (8.5-10.1) mg/dL Total Bilirubin (0.2-1.0) mg/dL Direct Bilirubin (0.0-0.2) mg/dL Indirect Bilirubin AST (15-37) U/L ALT (12-78) U/L Alkaline Phosphatase (46-116) IU/L Creatine Kinase (26-308) U/L Creatine Kinase Index (0.0-2.5) % CK-MB (CK-2) (0.00-3.60) ng/mL Troponin I (0.000-0.056) ng/mL Tgm-S-Zsufzufppyf Pept (0-125) pg/mL Total Protein (6.4-8.2) g/dL Albumin (3.4-5.0) g/dL 11/10/ Range/Units 06:25 WBC (4.0-10.2) K/uL RBC (4.33-5.41) M/uL Hgb (13.1-16.8) g/dL Hct (39.0-49.0) % MCV (84.0-98.0) fL MCH (28.2-33.3) pg MCHC (31.7-36.0) g/dL RDW (11.2-14.1) % Plt Count (150-350) K/uL Neut % (Auto) (45.0-80.0) % Lymph % (Auto) (10.0-50.0) % [place] % (Auto) (2.0-14.0) % Eos % (Auto) (0.0-5.0) % Baso % (Auto) (0.0-2.0) % Neut # (Auto) (1.40-7.00) K/uL Lymph # (Auto) (0.50-3.50) K/uL [place] # (Auto) (0.00-1.00) K/uL Eos # (Auto) (0.00-0.50) K/uL Baso # (Auto) (0.00-0.20) K/uL PT (9.8-11.7) SEC INR APTT (23.5-30.0) SEC D-Dimer, Quantitative (0-400) ng/mL Sodium 141 (136-145) mmol/L Potassium 3.5 (3.5-5.1) mmol/L Chloride 103 (98-107) mmol/L Carbon Dioxide 29.5 (21.0-32.0) mmol/L BUN 19 H (7-18) mg/dL Creatinine 0.92 (0.51-1.17) mg/dL Est Cr Clr Drug Dosing 85.23 mL/min Estimated GFR (MDRD) > 60 mL/min Glucose 114 H (74-106) mg/dL Calcium 9.1 (8.5-10.1) mg/dL Total Bilirubin 1.3 H (0.2-1.0) mg/dL Direct Bilirubin 0.3 H (0.0-0.2) mg/dL Indirect Bilirubin 1.0 AST 31 (15-37) U/L ALT 47 (12-78) U/L Alkaline Phosphatase 96 (46-116) IU/L Creatine Kinase 29 (26-308) U/L Creatine Kinase Index 2.8 H (0.0-2.5) % CK-MB (CK-2) 0.80 (0.00-3.60) ng/mL Troponin I 0.000 (0.000-0.056) ng/mL Kkv-E-Upchdtwwlqt Pept 244 H (0-125) pg/mL Total Protein 7.4 (6.4-8.2) g/dL Albumin 3.5 (3.4-5.0) g/dL Laboratory Tests 11/08/16 11/08/16 11/08/16 Range/Units 13:20 13:20 13:20 WBC 10.8 H (4.0-10.2) K/uL RBC 4.78 (4.33-5.41) M/uL Hgb 15.3 D (13.1-16.8) g/dL Hct 45.1 (39.0-49.0) % MCV 94.4 (84.0-98.0) fL MCH 32.0 (28.2-33.3) pg MCHC 33.9 (31.7-36.0) g/dL RDW 15.1 H (11.2-14.1) % Plt Count 239 D (150-350) K/uL Neut % (Auto) 73.0 (45.0-80.0) % Lymph % (Auto) 11.9 (10.0-50.0) % [place] % (Auto) 11.8 (2.0-14.0) % Eos % (Auto) 3.0 (0.0-5.0) % Baso % (Auto) 0.3 (0.0-2.0) % Neut # (Auto) 7.91 H (1.40-7.00) K/uL Lymph # (Auto) 1.29 (0.50-3.50) K/uL [place] # (Auto) 1.28 H (0.00-1.00) K/uL Eos # (Auto) 0.32 (0.00-0.50) K/uL Baso # (Auto) 0.03 (0.00-0.20) K/uL PT 21.5 H D (9.8-11.7) SEC INR 1.9 APTT (23.5-30.0) SEC D-Dimer, Quantitative (0-400) ng/mL Sodium 140 (136-145) mmol/L Potassium 3.7 (3.5-5.1) mmol/L Chloride 102 (98-107) mmol/L Carbon Dioxide 27.5 (21.0-32.0) mmol/L BUN 15 (7-18) mg/dL Creatinine 0.79 (0.51-1.17) mg/dL Est Cr Clr Drug Dosing 99.73 mL/min Estimated GFR (MDRD) > 60 mL/min Glucose 125 H (74-106) mg/dL Hemoglobin A1c (4.3-5.7) % Calcium 8.9 (8.5-10.1) mg/dL Total Bilirubin 1.6 H (0.2-1.0) mg/dL Direct Bilirubin (0.0-0.2) mg/dL Indirect Bilirubin AST 37 (15-37) U/L ALT 50 (12-78) U/L Alkaline Phosphatase 100 (46-116) IU/L Creatine Kinase (26-308) U/L Creatine Kinase Index (0.0-2.5) % CK-MB (CK-2) (0.00-3.60) ng/mL Troponin I (0.000-0.056) ng/mL Oss-K-Zpfxvhqcpqn Pept 282 H (0-125) pg/mL Total Protein 7.5 (6.4-8.2) g/dL Albumin 3.6 (3.4-5.0) g/dL TSH, Ultra Sensitive (0.358-3.740) mIU/mL Specimen Type Urine Color Urine Appearance Urine pH (5.0-9.0) Ur Specific [place] (1.005-1.030) Urine Protein (NEGATIVE) mg/dL Urine Glucose (UA) (NEGATIVE) mg/dL Urine Ketones (NEGATIVE) mg/dL Urine Occult Blood (NEGATIVE) Urine Nitrite (NEGATIVE) Urine Bilirubin (NEGATIVE) Urine Urobilinogen (0.2-1.0) E.U./dL Ur Leukocyte Esterase (NEGATIVE) Urine RBC /HPF Urine WBC /HPF Ur Epithelial Cells /LPF Urine Bacteria (NONE TO FEW) /HPF 11/08/16 11/08/16 11/09/16 Range/Units 13:20 14:21 09:25 WBC 10.7 H (4.0-10.2) K/uL RBC 4.83 (4.33-5.41) M/uL Hgb 15.3 (13.1-16.8) g/dL Hct 45.3 (39.0-49.0) % MCV 93.8 (84.0-98.0) fL MCH 31.7 (28.2-33.3) pg MCHC 33.8 (31.7-36.0) g/dL RDW 15.0 H (11.2-14.1) % Plt Count 252 (150-350) K/uL Neut % (Auto) 67.2 (45.0-80.0) % Lymph % (Auto) 15.9 (10.0-50.0) % [place] % (Auto) 12.0 (2.0-14.0) % Eos % (Auto) 4.5 (0.0-5.0) % Baso % (Auto) 0.4 (0.0-2.0) % Neut # (Auto) 7.16 H (1.40-7.00) K/uL Lymph # (Auto) 1.70 (0.50-3.50) K/uL [place] # (Auto) 1.28 H (0.00-1.00) K/uL Eos # (Auto) 0.48 (0.00-0.50) K/uL Baso # (Auto) 0.04 (0.00-0.20) K/uL PT (9.8-11.7) SEC INR APTT (23.5-30.0) SEC D-Dimer, Quantitative (0-400) ng/mL Sodium (136-145) mmol/L Potassium (3.5-5.1) mmol/L Chloride (98-107) mmol/L Carbon Dioxide (21.0-32.0) mmol/L BUN (7-18) mg/dL Creatinine (0.51-1.17) mg/dL Est Cr Clr Drug Dosing mL/min Estimated GFR (MDRD) mL/min Glucose (74-106) mg/dL Hemoglobin A1c (4.3-5.7) % Calcium (8.5-10.1) mg/dL Total Bilirubin (0.2-1.0) mg/dL Direct Bilirubin (0.0-0.2) mg/dL Indirect Bilirubin AST (15-37) U/L ALT (12-78) U/L Alkaline Phosphatase (46-116) IU/L Creatine Kinase (26-308) U/L Creatine Kinase Index (0.0-2.5) % CK-MB (CK-2) (0.00-3.60) ng/mL Troponin I (0.000-0.056) ng/mL Itl-E-Mqcfepvgzue Pept (0-125) pg/mL Total Protein (6.4-8.2) g/dL Albumin (3.4-5.0) g/dL TSH, Ultra Sensitive 1.855 (0.358-3.740) mIU/mL Specimen Type Urin[place]ad Urine Color Dark yellow Urine Appearance Clear Urine pH 6.5 (5.0-9.0) Ur Specific [place] 1.015 (1.005-1.030) Urine Protein Negative (NEGATIVE) mg/dL Urine Glucose (UA) Negative (NEGATIVE) mg/dL Urine Ketones Negative (NEGATIVE) mg/dL Urine Occult Blood Negative (NEGATIVE) Urine Nitrite Negative (NEGATIVE) Urine Bilirubin Negative (NEGATIVE) Urine Urobilinogen 1.0 (0.2-1.0) E.U./dL Ur Leukocyte Esterase Negative (NEGATIVE) Urine RBC Not seen /HPF Urine WBC 0-5 /HPF Ur Epithelial Cells Not seen /LPF Urine Bacteria Not seen (NONE TO FEW) /HPF 11/09/16 11/09/16 11/09/16 Range/Units 09:25 09:25 09:25 WBC (4.0-10.2) K/uL RBC (4.33-5.41) M/uL Hgb (13.1-16.8) g/dL Hct (39.0-49.0) % MCV (84.0-98.0) fL MCH (28.2-33.3) pg MCHC (31.7-36.0) g/dL RDW (11.2-14.1) % Plt Count (150-350) K/uL Neut % (Auto) (45.0-80.0) % Lymph % (Auto) (10.0-50.0) % [place] % (Auto) (2.0-14.0) % Eos % (Auto) (0.0-5.0) % Baso % (Auto) (0.0-2.0) % Neut # (Auto) (1.40-7.00) K/uL Lymph # (Auto) (0.50-3.50) K/uL [place] # (Auto) (0.00-1.00) K/uL Eos # (Auto) (0.00-0.50) K/uL Baso # (Auto) (0.00-0.20) K/uL PT (9.8-11.7) SEC INR APTT (23.5-30.0) SEC D-Dimer, Quantitative 709 H (0-400) ng/mL Sodium 143 (136-145) mmol/L Potassium 3.5 (3.5-5.1) mmol/L Chloride 105 (98-107) mmol/L Carbon Dioxide 29.1 (21.0-32.0) mmol/L BUN 19 H (7-18) mg/dL Creatinine 0.87 (0.51-1.17) mg/dL Est Cr Clr Drug Dosing 90.13 mL/min Estimated GFR (MDRD) > 60 mL/min Glucose 131 H (74-106) mg/dL Hemoglobin A1c 6.2 H (4.3-5.7) % Calcium 9.1 (8.5-10.1) mg/dL Total Bilirubin 1.6 H (0.2-1.0) mg/dL Direct Bilirubin (0.0-0.2) mg/dL Indirect Bilirubin AST 29 (15-37) U/L ALT 46 (12-78) U/L Alkaline Phosphatase 99 (46-116) IU/L Creatine Kinase 28 (26-308) U/L Creatine Kinase Index 2.9 H (0.0-2.5) % CK-MB (CK-2) 0.80 (0.00-3.60) ng/mL Troponin I 0.000 (0.000-0.056) ng/mL Qsv-U-Kvrnfsdzsut Pept 260 H (0-125) pg/mL Total Protein 7.3 (6.4-8.2) g/dL Albumin 3.5 (3.4-5.0) g/dL TSH, Ultra Sensitive (0.358-3.740) mIU/mL Specimen Type Urine Color Urine Appearance Urine pH (5.0-9.0) Ur Specific [place] (1.005-1.030) Urine Protein (NEGATIVE) mg/dL Urine Glucose (UA) (NEGATIVE) mg/dL Urine Ketones (NEGATIVE) mg/dL Urine Occult Blood (NEGATIVE) Urine Nitrite (NEGATIVE) Urine Bilirubin (NEGATIVE) Urine Urobilinogen (0.2-1.0) E.U./dL Ur Leukocyte Esterase (NEGATIVE) Urine RBC /HPF Urine WBC /HPF Ur Epithelial Cells /LPF Urine Bacteria (NONE TO FEW) /HPF 11/09/16 11/10/16 11/10/16 Range/Units 09:25 06:25 06:25 WBC 10.9 H (4.0-10.2) K/uL RBC 4.84 (4.33-5.41) M/uL Hgb 15.0 (13.1-16.8) g/dL Hct 45.4 (39.0-49.0) % MCV 93.8 (84.0-98.0) fL MCH 31.0 (28.2-33.3) pg MCHC 33.0 (31.7-36.0) g/dL RDW 15.2 H (11.2-14.1) % Plt Count 290 (150-350) K/uL Neut % (Auto) 65.2 (45.0-80.0) % Lymph % (Auto) 18.5 (10.0-50.0) % [place] % (Auto) 11.9 (2.0-14.0) % Eos % (Auto) 4.0 (0.0-5.0) % Baso % (Auto) 0.4 (0.0-2.0) % Neut # (Auto) 7.13 H (1.40-7.00) K/uL Lymph # (Auto) 2.02 (0.50-3.50) K/uL [place] # (Auto) 1.30 H (0.00-1.00) K/uL Eos # (Auto) 0.44 (0.00-0.50) K/uL Baso # (Auto) 0.04 (0.00-0.20) K/uL PT 24.8 H 28.2 H (9.8-11.7) SEC INR 2.2 2.5 APTT 35.4 H 35.3 H (23.5-30.0) SEC D-Dimer, Quantitative (0-400) ng/mL Sodium (136-145) mmol/L Potassium (3.5-5.1) mmol/L Chloride (98-107) mmol/L Carbon Dioxide (21.0-32.0) mmol/L BUN (7-18) mg/dL Creatinine (0.51-1.17) mg/dL Est Cr Clr Drug Dosing mL/min Estimated GFR (MDRD) mL/min Glucose (74-106) mg/dL Hemoglobin A1c (4.3-5.7) % Calcium (8.5-10.1) mg/dL Total Bilirubin (0.2-1.0) mg/dL Direct Bilirubin (0.0-0.2) mg/dL Indirect Bilirubin AST (15-37) U/L ALT (12-78) U/L Alkaline Phosphatase (46-116) IU/L Creatine Kinase (26-308) U/L Creatine Kinase Index (0.0-2.5) % CK-MB (CK-2) (0.00-3.60) ng/mL Troponin I (0.000-0.056) ng/mL Poy-[id number] Pept (0-125) pg/mL Total Protein (6.4-8.2) g/dL Albumin (3.4-5.0) g/dL TSH, Ultra Sensitive (0.358-3.740) mIU/mL Specimen Type Urine Color Urine Appearance Urine pH (5.0-9.0) Ur Specific [place] (1.005-1.030) Urine Protein (NEGATIVE) mg/dL Urine Glucose (UA) (NEGATIVE) mg/dL Urine Ketones (NEGATIVE) mg/dL Urine Occult Blood (NEGATIVE) Urine Nitrite (NEGATIVE) Urine Bilirubin (NEGATIVE) Urine Urobilinogen (0.2-1.0) E.U./dL Ur Leukocyte Esterase (NEGATIVE) Urine RBC /HPF Urine WBC /HPF Ur Epithelial Cells /LPF Urine Bacteria (NONE TO FEW) /HPF 11/10/16 11/10/16 Range/Units 06:25 06:25 WBC (4.0-10.2) K/uL RBC (4.33-5.41) M/uL Hgb (13.1-16.8) g/dL Hct (39.0-49.0) % MCV (84.0-98.0) fL MCH (28.2-33.3) pg MCHC (31.7-36.0) g/dL RDW (11.2-14.1) % Plt Count (150-350) K/uL Neut % (Auto) (45.0-80.0) % Lymph % (Auto) (10.0-50.0) % [place] % (Auto) (2.0-14.0) % Eos % (Auto) (0.0-5.0) % Baso % (Auto) (0.0-2.0) % Neut # (Auto) (1.40-7.00) K/uL Lymph # (Auto) (0.50-3.50) K/uL [place] # (Auto) (0.00-1.00) K/uL Eos # (Auto) (0.00-0.50) K/uL Baso # (Auto) (0.00-0.20) K/uL PT (9.8-11.7) SEC INR APTT (23.5-30.0) SEC D-Dimer, Quantitative 873 H (0-400) ng/mL Sodium 141 (136-145) mmol/L Potassium 3.5 (3.5-5.1) mmol/L Chloride 103 (98-107) mmol/L Carbon Dioxide 29.5 (21.0-32.0) mmol/L BUN 19 H (7-18) mg/dL Creatinine 0.92 (0.51-1.17) mg/dL Est Cr Clr Drug Dosing 85.23 mL/min Estimated GFR (MDRD) > 60 mL/min Glucose 114 H (74-106) mg/dL Hemoglobin A1c (4.3-5.7) % Calcium 9.1 (8.5-10.1) mg/dL Total Bilirubin 1.3 H (0.2-1.0) mg/dL Direct Bilirubin 0.3 H (0.0-0.2) mg/dL Indirect Bilirubin 1.0 AST 31 (15-37) U/L ALT 47 (12-78) U/L Alkaline Phosphatase 96 (46-116) IU/L Creatine Kinase 29 (26-308) U/L Creatine Kinase Index 2.8 H (0.0-2.5) % CK-MB (CK-2) 0.80 (0.00-3.60) ng/mL Troponin I 0.000 (0.000-0.056) ng/mL Emf-[id number]-Rcjtrpznzty Pept 244 H (0-125) pg/mL Total Protein 7.4 (6.4-8.2) g/dL Albumin 3.5 (3.4-5.0) g/dL TSH, Ultra Sensitive (0.358-3.740) mIU/mL Specimen Type Urine Color Urine Appearance Urine pH (5.0-9.0) Ur Specific [place] (1.005-1.030) Urine Protein (NEGATIVE) mg/dL Urine Glucose (UA) (NEGATIVE) mg/dL Urine Ketones (NEGATIVE) mg/dL Urine Occult Blood (NEGATIVE) Urine Nitrite (NEGATIVE) Urine Bilirubin (NEGATIVE) Urine Urobilinogen (0.2-1.0) E.U./dL Ur Leukocyte Esterase (NEGATIVE) Urine RBC /HPF Urine WBC /HPF Ur Epithelial Cells /LPF Urine Bacteria (NONE TO FEW) /HPF FARZAD Results - Last 24 hrs: None Med Orders - Current: Current Medications Acetaminophen (Tylenol) 650 mg PO Q4H PRN PRN Reason: analgesia/fever Last Admin: 11/10/16 00:03 Dose: 650 mg Bisacodyl (Dulcolax) 10 mg RECTAL DAILY PRN PRN Reason: Constipation Furosemide (Lasix) 40 mg IVPUSH Q8H [facility] [place] Last Admin: 11/10/16 00:04 Dose: 40 mg Gabapentin (Neurontin) 400 mg PO TID [facility] [place] Last Admin: 11/10/16 07:41 Dose: 400 mg Levothyroxine Sodium (Levothyroxine) 25 mcg PO ACBREAKFAST [facility] [place] Last Admin: 11/10/16 07:41 Dose: 25 mcg Lisinopril (Prinivil) 10 mg PO BID [facility] [place] Last Admin: 11/09/16 18:12 Dose: 10 mg Magnesium Hydroxide (Milk Of Magnesia) 30 ml PO BID PRN PRN Reason: Constipation Potassium Chloride (Klor-Con M20) 20 meq PO TID [facility] [place] Last Admin: 11/10/16 07:41 Dose: 20 meq Simvastatin (Zocor) 10 mg PO BEDTIME [facility] [place] Last Admin: 11/09/16 19:28 Dose: 10 mg Sodium Chloride (Saline Flush) 10 ml FLUSH ASDIRECTED PRN PRN Reason: Keep Vein Open Last Admin: 11/09/16 10:25 Dose: 10 ml Discontinued Medications Amlodipine Besylate (Norvasc) 5 mg PO DAILY [facility] [place] Last Admin: 11/09/16 11:10 Dose: Not Given Diphenhydramine HCl (Benadryl) 50 mg IVPUSH ONETIME ONE Stop: 11/08/16 15:43 Last Admin: 11/08/16 16:02 Dose: 50 mg Furosemide (Lasix) 40 mg IVPUSH NOW ONE Stop: 11/08/16 13:00 Last Admin: 11/08/16 13:34 Dose: 40 mg Furosemide (Lasix) 40 mg IVPUSH NOW ONE Stop: 11/09/16 07:01 Last Admin: 11/09/16 09:53 Dose: Not Given Furosemide (Lasix) 20 mg IVPUSH ONETIME ONE Stop: 11/09/16 16:01 Furosemide (Lasix) 60 mg IVPUSH NOW ONE Stop: 11/09/16 08:57 Last Admin: 11/09/16 09:52 Dose: 60 mg Gabapentin (Neurontin) 900 mg PO TID [facility] [place] Last Admin: 11/09/16 10:09 Dose: 900 mg Gabapentin (Neurontin) 900 mg PO TID@0800,1500,2100 [facility] [place] Last Admin: 11/09/16 18:15 Dose: Not Given Sodium Chloride (Normal Saline) 1,000 mls @ 75 mls/hr IV ASDIRECTED ONE Stop: 11/09/16 05:01 Last Admin: 11/08/16 16:05 Dose: 75 mls/hr Ketorolac Tromethamine (Toradol) 30 mg IVPUSH ONETIME ONE Stop: 11/08/16 15:43 Last Admin: 11/08/16 16:04 Dose: 30 mg Lisinopril (Prinivil) 10 mg PO DAILY [facility] [place] Last Admin: 11/09/16 09:51 Dose: 10 mg Terazosin HCl (Hytrin) 10 mg PO DAILY [facility] [place] Last Admin: 11/09/16 09:50 Dose: 10 mg Tramadol HCl (Ultram) 50 mg PO ONETIME ONE Stop: 11/08/16 15:41 Last Admin: 11/08/16 16:01 Dose: 50 mg Warfarin Sodium (Coumadin) 2.5 mg PO ONETIME@1800 ONE Stop: 11/08/16 18:01 Warfarin Sodium (Coumadin) 5 mg PO ONETIME ONE Stop: 11/08/16 18:01 Last Admin: 11/08/16 17:33 Dose: 5 mg Warfarin Sodium (Coumadin) 2.5 mg PO ONETIME ONE Stop: 11/09/16 18:01 Last Admin: 11/09/16 18:14 Dose: 2.5 mg - Exam Quality Assessment: Reports: DVT Prophylaxis (On Coumadin). Denies: Supplemental Oxygen, Central Line/PICC, Urine Catheter, Skin Breakdown, Restraints General: Reports: Alert, Oriented, Cooperative, No Acute Distress HEENT: Reports: Pupils Equal, Pupils Reactive, Mucous Membr. Moist/[place], Other ( Left-sided strabismus convergence with moderate to severe upper lid ptosis). Denies: EOMI, Scleral Icterus Neck: Reports: Supple, Trachea Midline, No JVD, No Thyromegaly, Carotid Bruit ( Borderline mild bilateral carotid bruits). Denies: Lymphadenopathy, Thyromegaly Lungs: Reports: Normal Respiratory Effort, Rales (Mild bilateral basilar rales) . Denies: Rhonchi, Rub, Stridor, Wheezing Cardiovascular: Reports: Irregular Rhythm, Bradycardia (Severe). Denies: Murmurs, Gallops, Rubs GI/Abdominal Exam: Normal Bowel Sounds, Soft, Non-Tender, No Organomegaly, No Distention, No Abnormal Bruit, No Mass, Pelvis Stable, Other (Obese). No: Guarding (Male) Exam: Deferred Rectal (Males) Exam: Deferred Back Exam: Reports: Normal Inspection, Full Range of Motion. Denies: CVA Tenderness (L), CVA Tenderness (R), Muscle Spasm Extremities: Joint Swelling (Mild right shoulder), Arm Pain (Mild palpation pain and discomfort with limited movement in right shoulder with sutures still in place from arthroscopic surgery, persistent moderate ecchymosis over the right deltoid, proximal right arm, and right chest wall region somewhat improved from yesterday, no drainage from operative sites with no evidence of current infection, right arm immobilizer/sling present), Limited Range of Motion (Secondary to right shoulder surgery). No: Jose Alfredo's Sign, Leg Pain, Increased Warmth, Pallor, Redness Skin: Reports: Warm, Dry, Ecchymosis (As above) Wound/Incisions: Reports: Healing Well, No Drainage Neurological: Reports: No New Focal Deficit Psy/Mental Status: Reports: Alert, Normal Affect, Normal Mood. Denies: Anxious , Depressed, Agitated, Hallucinations, Withdrawal Symptoms EKG INTERPRETATION EKG Date: 11/10/16 Time: 07:16 Rhythm: Other (Atrial fibrillation with severe bradycardia) Rate (Beats/Min): 44 [place]: Normal (Neutral cardiac) P-Wave: Variable QRS: Normal (QRS interval of 0.09 seconds representing repolarization changes) ST-T: Normal (Noisy baseline) QT: Normal [place]/PQ Interval: Not applicable Comparison: No Change (Since 11/09/16) EKG Interpretation Comments: 1. No acute ischemic changes 2. Atrial fibrillation with severe bradycardia Note 2 additional EKGs conducted with rhythm strips showing frequent PVCs versus PACs with aberrant conduction including 3 beat run *Q Meaningful Use (DIS) - VTE *Q VTE Criteria *Q: - Stroke *Q Stroke Criteria *Q: - AMI *Q AMI Criteria *Q:
[2016-11-10] MEDS: Lisinopril 10 MG Tab PO SCH (09:08)
[2016-11-10] MEDS: Sodium Chloride 0.9% 10 ML Syringe FLUSH PRN (09:37)
== END 2016-11-10 10:05 | DRG 310 ==
LOC: LL.ED 11:23 → LL.MS 12:12 → UNDOADMOB 12:12 → LL.MS 12:41 → OBSVTOIN 11-09 15:06
PROVIDERS: ADMIT Emergency Medicine; ATTEND Family Medicine
DX: R60.0 Localized edema (principal); L29.9 Pruritus, unspecified; R00.1 Bradycardia, unspecified; Z98.890 Other specified postprocedural states; I50.9 Heart failure, unspecified; I48.2 Chronic atrial fibrillation; M15.0 Primary generalized (osteo)arthritis; G89.29 Other chronic pain; M54.9 Dorsalgia, unspecified; I48.91 Unspecified atrial fibrillation; R79.1 Abnormal coagulation profile; I10 Essential (primary) hypertension; J44.9 Chronic obstructive pulmonary disease, unspecified; M19.90 Unspecified osteoarthritis, unspecified site; M10.9 Gout, unspecified; E66.9 Obesity, unspecified; Z68.30 Body mass index [BMI] 30.0-30.9, adult; E78.5 Hyperlipidemia, unspecified; G62.9 Polyneuropathy, unspecified; E03.9 Hypothyroidism, unspecified; N40.0 Benign prostatic hyperplasia without lower urinary tract symptoms; Z79.899 Other long term (current) drug therapy; Z79.01 Long term (current) use of anticoagulants; I11.0 Hypertensive heart disease with heart failure; Z87.891 Personal history of nicotine dependence
CPT/HCPCS: 36415 ×2; 80053 ×2; 81001; 82550; 82553; 83036; 83880 ×2; 84443; 84484; 85025 ×2; 85379; 85610 ×2; 85730; 93005; 93970; 99284; A9270 ×10; J1200; J1885; J1940 ×2; J7030; J7050 ×2; 71020; 82247; 82248; 96374; 96375; 96376; 99219; G0378

== ENCOUNTER 2018-04-04 08:53 | Day surgery (SDC) | payer MEDICARE, BC ==
[~2018-04-04 08:53] MED LIST: Midazolam 1 MG/ML 2 ML SDV ONE; Propofol 200 MG/20 ML SDV ONE
[2018-04-04] MEDS ORDERED: Lactated Ringers 1,000 ML IV SCH (09:00)
[2018-04-04] MEDS ORDERED: Sodium Chloride 0.9% 10 ML Syringe FLUSH PRN (09:00)
--- NOTE | 2018-04-04 10:30 | PCM.PN ---
- General Info Date of Service: 04/04/18 - Review of Systems Systems Review Comment:: 72-year-old male referred for EGD and colonoscopy. He last had these done approximately 3 years ago.He has a history of Carlton's esophagus as well as colon polyps. The patient is medically stable to proceed today. His recent history and physical is reviewed and no significant changes are noted. I discussed the proposed upper and lower endoscopy with the patient. He agrees to proceed accepting risks. - Patient Data Vitals - Most Recent: Last Vital Signs Temp 97.9 F 04/04/18 09:17 Pulse 52 L 04/04/18 09:17 Resp 20 04/04/18 09:17 BP 174/89 H 04/04/18 09:17 Pulse Ox 99 04/04/18 09:17 Weight - Most Recent: 129.274 kg Lab Results Last 24 Hours: Laboratory Results - last 24 hr 04/04/18 Range/Units 09:22 POC Glucose 117 H (65-110) mg/dl Med Orders - Current: Current Medications Lactated Ringer's (Ringers, Lactated) 1,000 mls @ 125 mls/hr IV ASDIRECTED [place] Last Admin: 04/04/18 09:33 Dose: 125 mls/hr Sodium Chloride (Saline Flush) 10 ml FLUSH ASDIRECTED PRN PRN Reason: Keep Vein Open Discontinued Medications Midazolam HCl (Versed 1 Mg/Ml) Confirm Administered Dose 2 mg .ROUTE .STK-MED ONE Stop: 04/04/18 08:16 Propofol (Diprivan 20 Ml) Confirm Administered Dose 200 mg .ROUTE .STK-MED ONE Stop: 04/04/18 08:16 - Problem List Review Problem List Initiated/Reviewed/Updated: Yes - My Orders Last 24 Hours: My Active Orders 04/04/18 09:00 Patient Status [ADT] Routine Blood Glucose Check, Bedside [RC] ONETIME Peripheral IV Care [RC] . DIRECTED Verify Patient Consent Obtain [RC] ASDIRECTED Lactated Ringers [Ringers, Lactated] 1,000 ml IV ASDIRECTED Sodium Chloride 0.9% [Saline Flush] 10 ml FLUSH ASDIRECTED PRN Peripheral IV Insertion Adult [OM.PC] Routine - Assessment Assessment:: Carlton's esophagus History of colon polyps - Plan Plan:: EGD and colonoscopy
[2018-04-04] MEDS ORDERED: fentaNYL 100 MCG/2 ML SDV ONE ×2 (10:46→10:52)
[2018-04-04] MEDS ORDERED: Midazolam 1 MG/ML 2 ML SDV ONE (10:52)
[2018-04-04] MEDS ORDERED: Lidocaine 2% 5 ML SDV ONE (10:52)
[2018-04-04] MEDS ORDERED: Propofol 200 MG/20 ML SDV ONE (10:52)
--- NOTE | 2018-04-04 11:47 | PCM.OPNOTE ---
- General Post-Op/Procedure Note Date of Surgery/Procedure: 04/04/18 Operative Procedure(s): EGD and biopsy. Colonoscopy with polypectomy Findings: mild Carlton's esophagus Mild gastritis in the antrum small transverse colon polyps Moderate sigmoid diverticulosis Pre Op Diagnosis: history of Carlton's esophagus. History of colon polyps Post-Op Diagnosis: Carlton's esophagus. gastritis. colon polyp. sigmoid diverticulosis Anesthesia Technique: [facility] Primary Surgeon: Reji Rosales Pathology: biopsies of distal esophagus and colon polyps Output, Urine Amount: 0 EBL in mLs: 3 Complications: None Condition: Good
--- NOTE | 2018-04-04 13:51 | OR ---
Date of Procedure: 04/04/2018 REFERRING PROVIDER: MERE Cohen PREOPERATIVE DIAGNOSES: 1. History of Carlton's esophagus. 2. History of colon polyps. POSTOPERATIVE DIAGNOSES: 1. Carlton's esophagus. 2. Gastritis. 3. Colon polyps. 4. Sigmoid diverticulosis. OPERATION PERFORMED: Esophagogastroduodenoscopy with biopsy and colonoscopy with polypectomy. INDICATIONS FOR SURGERY: This 72-year-old male has a history of Carlton's esophagus as well as history of colon polyps. He comes for surveillance of these problems today. FINDINGS: On upper endoscopy, the patient has visible evidence of Carlton's esophagus extending approximately 2 cm above the Z-line. The mucosa appears smooth without nodularity or acute inflammation. The patient has a minimal degree of hyperemia of the gastric antrum near the pylorus without ulceration or erosion. The remainder of the upper endoscopy appears normal. On colonoscopy, the patient has a moderate degree of diverticulosis involving the sigmoid colon without evidence of acute inflammation. He also has 2 polyps in the transverse colon, a 5 mm and a 10-mm sessile polyps, which are located close to each other in the mid transverse colon. The remainder of the colon appears normal. DESCRIPTION OF PROCEDURE: The patient was taken to the operating room. He was given intravenous sedation and his throat was topically anesthetized. With the patient in the left lateral decubitus position, the esophagus was intubated with the Olympus gastroscope. This was carefully advanced down through the esophagus, stomach, and into the duodenum, where examination to the third portion was performed. Examination was carefully performed as the scope was withdrawn. Full examination of the stomach including retroflexed examination of the fundus was also carried out. The GE junction was carefully examined and biopsies at multiple levels were taken in the area of the Carlton's esophagus for surveillance. The esophagus was then re-examined as the scope was withdrawn. Attention was turned to colonoscopy. Digital rectal exam shows no rectal masses. The Olympus colonoscope was inserted into the rectum. Retroflexed examination of the rectal canal was performed. The scope was then carefully advanced under direct visualization through the entire length of the colon until the cecum was reached. Cecal acquisition was confirmed by noting the normal internal cecal anatomy including the appendiceal orifice and ileocecal valve. The light was also noted to transilluminate the abdominal wall in the right lower quadrant. After examining the cecum, the scope was slowly withdrawn sequentially re-examining the colonic segments. In the mid transverse colon, the above-described polyps were identified. These were both removed. The small one was removed with the biopsy forceps. The larger polyp was removed with cautery snare. The polyp tissue was retrieved. Examination was completed carefully examining the entire colon and rectum. The scope was then removed and the patient was taken from the operating room in satisfactory condition. ESTIMATED BLOOD LOSS: 3 mL. COMPLICATIONS: None. PROGNOSIS: Good. BO Rosales MD /[id number] MTDD
[2018-04-04 14:49] VITALS: BP 182/97
== END 2018-04-04 13:03 | disposition home or self-care (01) ==
LOC: LL.SDS 08:53
PROVIDERS: ATTEND Surgery
DX: Z12.11 Encounter for screening for malignant neoplasm of colon (principal); D12.3 Benign neoplasm of transverse colon; K57.30 Diverticulosis of large intestine without perforation or abscess without bleeding; K22.70 Barrett's esophagus without dysplasia; K20.9 Esophagitis, unspecified; I11.0 Hypertensive heart disease with heart failure; I50.9 Heart failure, unspecified; J44.9 Chronic obstructive pulmonary disease, unspecified; E11.40 Type 2 diabetes mellitus with diabetic neuropathy, unspecified; E78.2 Mixed hyperlipidemia; E66.01 Morbid (severe) obesity due to excess calories; Z68.41 Body mass index [BMI] 40.0-44.9, adult; K21.9 Gastro-esophageal reflux disease without esophagitis; E06.3 Autoimmune thyroiditis; E03.9 Hypothyroidism, unspecified; Z86.010 Personal history of colon polyps; Z87.891 Personal history of nicotine dependence; Z79.84 Long term (current) use of oral hypoglycemic drugs; Z79.01 Long term (current) use of anticoagulants; Z79.899 Other long term (current) drug therapy; Z79.890 Hormone replacement therapy
CPT/HCPCS: 00813; 82962; 88305; J2001; J2250; J2704; J3010; J7120

== ENCOUNTER 2019-09-05 12:01 | Emergency (ER) | payer MEDICARE, BC ==
[2019-09-05 12:07] VITALS: BP 187/75; PULSE 42
[2019-09-05] MEDS ORDERED: methylPREDNISolone Sodium Succinate 125 MG/2 ML SDV IM ONE (12:45)
[2019-09-05] MEDS ORDERED: Diazepam 5 MG Tab PO ONE (12:45)
[2019-09-05] MEDS ORDERED: Ketorolac 60 MG/2 ML SDV IM ONE (12:46)
[2019-09-05] MEDS ORDERED: Ondansetron 4 MG Tab.DIS PO ONE (12:47)
[2019-09-05] MEDS ORDERED: Morphine 2 MG/ML Syringe IM ONE (12:47)
--- NOTE | 2019-09-05 12:53 | EDM.PDOC ---
ED HPI GENERAL MEDICAL PROBLEM - General Chief Complaint: Back Pain or Injury Stated Complaint: back, left hip pain Time Seen by Provider: 09/05/19 12:08 Source of Information: Reports: Patient History Limitations: Reports: No Limitations - History of Present Illness INITIAL COMMENTS - FREE TEXT/NARRATIVE: One week history of left low back pain. Has had similar pain exacerbation in past. No specific trigger/injury/change in activity preceding pain. Has history of chronic back pain/DJD. On Gabapentin. No numbness/tingling of left leg. Has spasm like quality to pain. Saw chiropractor this past week three times with some improvement of pain but today pain has worsened significantly and impacts ADLs. No dysuria/bowel or bladder changes. No hematuria. Denies abdominal pain/urinary changes. No nausea/stool changes. Hx compression fracture L4 Pulse in 40s, pt says that is normal for him. Left Hip Pain Score (Numeric/FACES): 10 - Related Data Allergies Allergy/AdvReac Type Severity Reaction Status Date / Time No Known Allergies Allergy Verified 04/04/18 09:14 Home Meds: Home Meds Gabapentin [Neurontin] 900 mg PO TID 11/29/14 [History] Simvastatin [Zocor] 10 mg PO BEDTIME 11/29/14 [History] Acetaminophen 1,000 mg PO Q8HR PRN 03/07/15 [History] Levothyroxine 25 mcg PO ACBREAKFAST 11/08/16 [History] Lisinopril 20 mg PO DAILY 04/03/18 [History] Non-Formulary Medication [NF Drug] 1 applic TOP DAILY 04/03/18 [History] Warfarin [Coumadin] 2 mg PO DAILY 04/03/18 [History] Aspirin [Halfprin] 81 mg PO QAM 04/04/18 [History] Cyclobenzaprine [Flexeril] 10 mg PO TID PRN #15 tab 09/05/19 [Rx] traMADol [Ultram] 50 mg PO Q4H PRN #15 tab 09/05/19 [Rx] Past Medical History HEENT History: Reports: Impaired Vision Other HEENT History: wears glasses Cardiovascular History: Reports: Afib, High Cholesterol, Hypertension, Other (See Below) Other Cardiovascular History: Vasculitis Respiratory History: Reports: COPD Other Respiratory History: HCC Gastrointestinal History: Reports: Other (See Below) Other Gastrointestinal History: Carlton's esophagus Genitourinary History: Reports: BPH Other Genitourinary History: Erectile dysfunction Musculoskeletal History: Reports: Arthritis, Back Pain, Chronic, Fracture, Gout, Other (See Below) Other Musculoskeletal History: Compression fracture of L4 Neurological History: Reports: Neuropathy, Diabetic Psychiatric History: Reports: None Endocrine/Metabolic History: Reports: Hypothyroidism Hematologic History: Reports: None Immunologic History: Reports: None Oncologic (Cancer) History: Reports: None Dermatologic History: Reports: Other (See Below) Other Dermatologic History: Foot Callus, Onychomycosis - Past Surgical History GI Surgical History: Reports: Hernia, Inguinal Musculoskeletal Surgical History: Reports: Knee Replacement, Shoulder Surgery Social & Family History - Family History Cardiac: Reports: Heart Failure, Hypertension Endocrine/Metabolic: Reports: Diabetes, type II - Tobacco Use Smoking Status *Q: Former Smoker Used Tobacco, but Quit: Yes Month/Year Tobacco Last Used: 1979 - Caffeine Use Caffeine Use: Reports: Coffee - Recreational Drug Use Recreational Drug Use: No ED ROS GENERAL - Review of Systems Review Of Systems: See Below Constitutional: Reports: No Symptoms HEENT: Denies: Ear Pain, Eye Pain, Rhinitis, Throat Pain, Throat Swelling, Vertigo, Vision Change Respiratory: Denies: Shortness of Breath, Wheezing, Pleuritic Chest Pain, Cough, Sputum Cardiovascular: Denies: Chest Pain, Dyspnea on Exertion, Lightheadedness, Palpitations, Syncope GI/Abdominal: Denies: Abdominal Pain, Black Stool, Bloody Stool, Constipation, Diarrhea, Decreased Appetite, Difficulty Swallowing, Distension, Nausea, Vomiting : Denies: Dysuria, Flank Pain, Frequency, Hematuria, Pain, Urgency Musculoskeletal: Reports: Back Pain Skin: Reports: Other (PVD changes lower extremities) Neurological: Reports: Difficulty Walking (due to pain), Gait Disturbance (due to pain). Denies: Confusion, Dizziness, Headache, Numbness, Paresthesia, Trouble Speaking Psychiatric: Reports: No Symptoms Hematologic/Lymphatic: Reports: No Symptoms ED EXAM, GENERAL - Physical Exam Exam: See Below Exam Limited By: No Limitations General Appearance: Alert, Moderate Distress, Obese Eye Exam: Bilateral Eye: EOMI, PERRL Ears: Hearing Grossly Normal Nose: No: Nasal Deformity, Nasal Swelling, Nasal Drainage Throat/Mouth: Normal Lips, Normal Voice, No Airway Compromise Head: Atraumatic, Normocephalic Neck: Supple, Non-Tender, Full Range of Motion Respiratory/Chest: No Respiratory Distress, Lungs Clear, Normal Breath Sounds, No Accessory Muscle Use GI/Abdominal: Normal Bowel Sounds, Soft, Non-Tender, No Distention (Male) Exam: Deferred Rectal (Males) Exam: Deferred Back Exam: Other (tender with palpation adjacent to lumbar spine on left near SI junction/reproduces pain complaint) Extremities: Non-Tender, Other (equal strength bilaterally. Lower legs discolored/mild edema). No: Jose Alfredo's Sign, Increased Warmth, Mottled, Pallor Neurological: Alert, Oriented, Normal Cognition Psychiatric: Normal Affect, Normal Mood Skin Exam: Warm, Dry Course - Vital Signs Last Recorded V/S: Last Vital Signs Temp 36.4 C 09/05/19 12:02 Pulse 42 L 09/05/19 12:02 Resp 20 09/05/19 12:02 BP 187/75 H 09/05/19 12:02 Pulse Ox 100 09/05/19 12:02 - Orders/Labs/Meds Labs: Laboratory Tests 09/05/19 09/05/19 09/05/19 Range/Units 13:10 13:10 13:10 WBC 8.1 (4.0-10.2) K/uL RBC 5.30 (4.33-5.41) M/uL Hgb 16.3 (13.1-16.8) g/dL Hct 49.1 H (39.0-49.0) % MCV 92.6 (84.0-98.0) fL MCH 30.8 (28.2-33.3) pg MCHC 33.2 (31.7-36.0) g/dL RDW 14.7 H (11.2-14.1) % Plt Count 213 (150-350) K/uL Neut % (Auto) 62.0 (45.0-80.0) % Lymph % (Auto) 23.1 (10.0-50.0) % Butler % (Auto) 10.6 (2.0-14.0) % Eos % (Auto) 3.8 (0.0-5.0) % Baso % (Auto) 0.5 (0.0-2.0) % Neut # (Auto) 5.01 (1.40-7.00) K/uL Lymph # (Auto) 1.87 (0.50-3.50) K/uL Butler # (Auto) 0.86 (0.00-1.00) K/uL Eos # (Auto) 0.31 (0.00-0.50) K/uL Baso # (Auto) 0.04 (0.00-0.20) K/uL PT 21.4 H (9.5-12.0) SEC INR 2.2 Sodium 144 (136-145) mmol/L Potassium 4.2 (3.5-5.1) mmol/L Chloride 106 (98-107) mmol/L Carbon Dioxide 27.6 (21.0-32.0) mmol/L BUN 18 (7-18) mg/dL Creatinine 0.92 (0.51-1.17) mg/dL Est Cr Clr Drug Dosing 79.66 mL/min Estimated GFR (MDRD) > 60 mL/min Glucose 94 (74-106) mg/dL Calcium 9.3 (8.5-10.1) mg/dL Magnesium 2.0 (1.8-2.4) mg/dL Total Bilirubin 1.1 H (0.2-1.0) mg/dL AST 28 (15-37) U/L ALT 33 (12-78) U/L Alkaline Phosphatase 92 (46-116) IU/L Total Protein 7.8 (6.4-8.2) g/dL Albumin 4.1 (3.4-5.0) g/dL Meds: Medications Discontinued Medications Generic Name Dose Route Start Last Admin Trade Name Freq PRN Reason Stop Dose Admin Diazepam 5 mg 09/05/19 12:45 09/05/19 12:52 Valium. PO 09/05/19 12:46 5 mg ONETIME ONE Administration Ketorolac Tromethamine 60 mg 09/05/19 12:46 09/05/19 12:52 Toradol IM 09/05/19 12:47 60 mg ONETIME ONE Administration Methylprednisolone Sodium Succinate 125 mg 09/05/19 12:45 09/05/19 12:51 Solu-Medrol IM 09/05/19 12:46 125 mg ONETIME ONE Administration Morphine Sulfate 5 mg 09/05/19 12:47 09/05/19 12:54 Morphine IM 09/05/19 12:48 5 mg ONETIME ONE Administration Ondansetron HCl 4 mg 09/05/19 12:47 09/05/19 12:54 Zofran Odt PO 09/05/19 12:48 4 mg ONETIME ONE Administration - Re-Assessments/Exams Free Text/Narrative Re-Assessment/Exam: 09/05/19 12:56 Patient does not wish to get plain films of low back at this time secondary to discomfort involved and after discussing pros/cons of different imaging modalities. Plain film would give low yield of results given patient's history. Better to consider MRI study if complaint does not improve over the weekend. Will given SoluMedrol to help with the pain complaint in addition to muscle relaxant and pain medication. Patient will be observed in ER for mediation effect. Plan at this time will be to let patient return home with follow up by primary provider Sunday if he is feeling better. Consider observation admission if no significant improvement observed. Free Text/Narrative Re-Assessment/Exam: 09/05/19 14:19 Patient feels better. Declined observation admission. Will go home and try OTC CBD oil plus PRN Flexeril and Tramadol. Extensive precautions reviewed given the potential for interaction between the pain meds/anti-spasm med/Gabapentin that patient is prescribed. No driving. No extra doses of meds. No ETOH. To return to ER if pain worsens or if other concerns arise. Patient and in agreement with plan. To follow up Sunday with primary for recheck and to get BP rechecked as it was improved but still elevated at time of d/c. CBC/Chem/PT and INR preformed during stay and overall unremarkable. Departure - Departure Time of Disposition: 14:13 Disposition: Home, Self-Care 01 Condition: Good Clinical Impression: Acute exacerbation of chronic low back pain Hypertension Qualifiers: Hypertension type: essential hypertension Qualified Code(s): I10 - Essential (primary) hypertension - Discharge Information *PRESCRIPTION DRUG MONITORING PROGRAM REVIEWED*: Not Applicable *COPY OF PRESCRIPTION DRUG MONITORING REPORT IN PATIENT LILLIE: Not Applicable Prescriptions: Cyclobenzaprine [Flexeril] 10 mg PO TID PRN #15 tab PRN Reason: Spasms traMADol [Ultram] 50 mg PO Q4H PRN #15 tab PRN Reason: Pain Instructions: Acute Back Pain, Adult Referrals: PCP,None [Primary Care Provider] - Forms: ED Department Discharge Additional Instructions: Take it easy over the weekend. Take meds as prescribed. NO EXTRA DOSES. Do not drink alcohol while using these meds. Follow up with your provider next week and get blood pressure rechecked to see if it improves once pain improves. Discuss possible MRI with your primary provider if pain does not improve. MRI is here in [place] on Mondays. They may have room for you this coming Sunday if needed so follow up early Sunday by phone with your clinic to see if this is an option if you are still having a lot of problems. Follow up as needed in the ER if you have worsening issues. Remember that you can have an observation admission to help you with basic cares/pain management if you have significant difficulties at home. Sepsis Event Note (ED) - Evaluation Sepsis Screening Result: No Definite Risk - Focused Exam Vital Signs: Vital Signs Temp Pulse Resp BP Pulse Ox 09/05/19 12:02 36.4 C 42 L 20 187/75 H 100
[2019-09-05 13:32] LABS: CHLORIDE,CL 106 mmol/L (98-107); SODIUM,NA 144 mmol/L (136-145)
== END 2019-09-05 14:30 | disposition home or self-care (01) ==
LOC: LL.ED 12:01
DX: G89.29 Other chronic pain (principal); M54.5 Low back pain; I10 Essential (primary) hypertension; E78.00 Pure hypercholesterolemia, unspecified; I48.91 Unspecified atrial fibrillation; J44.9 Chronic obstructive pulmonary disease, unspecified; E11.40 Type 2 diabetes mellitus with diabetic neuropathy, unspecified; E03.9 Hypothyroidism, unspecified; E66.9 Obesity, unspecified; Z68.37 Body mass index [BMI] 37.0-37.9, adult; Z79.01 Long term (current) use of anticoagulants; Z79.899 Other long term (current) drug therapy; Z87.891 Personal history of nicotine dependence
CPT/HCPCS: 36415; 80053; 83735; 85025; 85610; 96372; 99283; A9270-GY; J1885; J2270; J2930

== ENCOUNTER 2021-07-07 07:58 | Day surgery (SDC) | payer MEDICARE ==
[2021-07-07] MEDS ORDERED: Sodium Chloride 0.9% 10 ML Syringe FLUSH PRN (08:21)
[2021-07-07] MEDS ORDERED: Midazolam 1 MG/ML 2 ML SDV ONE ×2 (08:27→09:00)
[2021-07-07] MEDS ORDERED: Propofol 200 MG/20 ML SDV ONE ×2 (08:28→09:00)
[2021-07-07] MEDS ORDERED: Lactated Ringers 1,000 ML IV SCH (08:30)
[2021-07-07] MEDS ORDERED: Glycopyrrolate 0.2 MG/ML SDV ONE (09:00)
[2021-07-07] MEDS ORDERED: Lidocaine 2% 5 ML SDV ONE (09:00)
[2021-07-07 10:01] VITALS: PULSE 54
[2021-07-07 10:12] VITALS: BP 142/86
== END 2021-07-07 10:54 | disposition home or self-care (01) ==
LOC: LL.SDS 07:58
PROVIDERS: ATTEND Surgery
DX: Z12.11 Encounter for screening for malignant neoplasm of colon (principal); D12.0 Benign neoplasm of cecum; D12.2 Benign neoplasm of ascending colon; D12.3 Benign neoplasm of transverse colon; K22.70 Barrett's esophagus without dysplasia; K57.30 Diverticulosis of large intestine without perforation or abscess without bleeding; J44.9 Chronic obstructive pulmonary disease, unspecified; E78.5 Hyperlipidemia, unspecified; I10 Essential (primary) hypertension; E11.9 Type 2 diabetes mellitus without complications; M10.9 Gout, unspecified; Z98.890 Other specified postprocedural states; Z79.899 Other long term (current) drug therapy; Z87.891 Personal history of nicotine dependence
CPT/HCPCS: 43239; 45380; J2250; J2704; J3490; J7120

== ENCOUNTER 2022-02-07 08:59 | Emergency (ER) | payer MEDICARE ==
[2022-02-07] MEDS: Orphenadrine 60 MG/2 ML Inj IM ONE (09:15)
[2022-02-07 09:34] VITALS: BP 129/91; PULSE 42
[2022-02-07 09:43] LABS: ANION GAP 8.3 meq/L (7-15)
[2022-02-07] MEDS: traMADol 50 MG Tab PO ONE (09:49)
[2022-02-07] MEDS: Magnesium Sulfate/D5W 1 GM/100 ML Premix Bag IV ONE (10:01)
== END 2022-02-07 12:00 | disposition home or self-care (01) ==
LOC: LL.ED 08:59
DX: M54.50 Low back pain, unspecified (principal); G89.29 Other chronic pain; E78.00 Pure hypercholesterolemia, unspecified; I10 Essential (primary) hypertension; E11.40 Type 2 diabetes mellitus with diabetic neuropathy, unspecified; J44.9 Chronic obstructive pulmonary disease, unspecified; E66.9 Obesity, unspecified; Z68.37 Body mass index [BMI] 37.0-37.9, adult; Z79.899 Other long term (current) drug therapy; Z79.01 Long term (current) use of anticoagulants; X50.1XXA Overexertion from prolonged static or awkward postures, initial encounter
CPT/HCPCS: 36415; 80048; 83735; 85025; 85610; 96365; 96372; 99283-25; 99284; A9270-GY; J2360; J3475

== ENCOUNTER 2024-05-08 09:34 | Day surgery (SDC) | payer MEDICARE, OTHER ==
[2024-05-08] MEDS: Lactated Ringers 1,000 ML IV SCH (09:30)
[~2024-05-08 09:34] MED LIST changes: +Sodium Chloride 0.9% 10 ML Syringe FLUSH PRN
[2024-05-08] MEDS ORDERED: Glycopyrrolate 0.2 MG/ML SDV IVPUSH ONE (10:40)
[2024-05-08 11:53] VITALS: BP 112/69; PULSE 78
== END 2024-05-08 12:25 | disposition home or self-care (01) ==
LOC: LL.SDS 09:34
PROVIDERS: ATTEND Surgery
DX: Z12.11 Encounter for screening for malignant neoplasm of colon (principal); D12.0 Benign neoplasm of cecum; D12.2 Benign neoplasm of ascending colon; K63.5 Polyp of colon; K21.00 Gastro-esophageal reflux disease with esophagitis, without bleeding; K22.70 Barrett's esophagus without dysplasia; Z86.0100 Personal history of colon polyps, unspecified; I11.0 Hypertensive heart disease with heart failure; I50.32 Chronic diastolic (congestive) heart failure; I48.21 Permanent atrial fibrillation; I25.10 Atherosclerotic heart disease of native coronary artery without angina pectoris; E11.59 Type 2 diabetes mellitus with other circulatory complications; E11.69 Type 2 diabetes mellitus with other specified complication; E06.3 Autoimmune thyroiditis; E66.01 Morbid (severe) obesity due to excess calories; E11.40 Type 2 diabetes mellitus with diabetic neuropathy, unspecified; N40.0 Benign prostatic hyperplasia without lower urinary tract symptoms; J44.9 Chronic obstructive pulmonary disease, unspecified; Z79.899 Other long term (current) drug therapy
CPT/HCPCS: 00813; 82947; 88305; 99100; J1596; J2250; J2704; J7120